=== PATIENT | male | born 1965 | race Caucasian/White ===

== ENCOUNTER 2024-06-24 14:33 | Outpatient (CLI) | payer BC, SELFPAY ==
--- NOTE | ~2024-06-24 | MR_ITS ---
EXAMINATION: MR hip RT wo con DATE: 06/24/2024 16:10 INDICATION: Unilateral primary osteoarthritis, right hip. TECHNIQUE: Magnetic resonance imaging (MRI) of the right hip was performed without intravenous contra st. COMPARISON: Pelvis and right hip radiograph 02/20/2024 FINDINGS: Bones/cartilage: Alignment is normal. There is severe degenerative disc disease at L5-S1. The hip joints demonstrate t iny osteophytes. There is deep partial-thickness cartilage loss in the hip joints bilaterally. Labrum: There is a tear of the right acetabular labrum. Fluid: There is no hip joint effusion. There is mild bilateral trochanter bursitis. Soft tissues: There is mild tendinopathy of the hamstring origins bilaterally. The iliopsoas tendons are normal. Th ere is mild tendinopathy of the gluteus minimus and gluteus medius tendons bilaterally. 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 IMPRESSION: 1. Moderate chondrosis of the hips. 2. Tear of the right acetabular labrum. Reviewed, dictated and finalized at location A.
== END 2024-06-24 14:34 | disposition home or self-care (01) ==
PROVIDERS: Visit Provider Physician Assistant Surgical
DX: M94.351 Chondrolysis, right hip (principal); M94.352 Chondrolysis, left hip; S73.191A Other sprain of right hip, initial encounter; M16.11 Unilateral primary osteoarthritis, right hip
CPT/HCPCS: 73721

== ENCOUNTER 2024-09-24 09:03 | Outpatient (CLI) | payer BC, SELFPAY ==
[2024-09-24 09:31] LABS: Anion Gap 7 mmol/L (4-12); Blood Urea Nitrogen 17 mg/dL (9-20); Calcium 9.2 mg/dL (8.4-10.2); Carbon Dioxide 25 mmol/L (22-30); Chloride 105 mmol/L (98-107); Estimated Glomerular Filt Rate > 60; Glucose 175 mg/dL (65-110); Potassium 4.5 mmol/L (3.4-5.0); Sodium 137 mmol/L (137-145)
== END 2024-09-24 09:04 | disposition home or self-care (01) ==
LOC: ANHLAB 09:05
PROVIDERS: Visit Provider Anesthesiology
DX: E11.9 Type 2 diabetes mellitus without complications (principal)
CPT/HCPCS: 36415; 80048

== ENCOUNTER 2024-09-30 00:21 | Day surgery (SDC) | payer BC, SELFPAY ==
[2024-09-22 08:52] VITALS: BMI 32.3
--- NOTE | 2024-09-22 09:03 | PC.NURSE ---
Report to the Outpatient Waiting Room, entrance under the green pavilion located off [facility], at time _1130_ on date _[id number]_. Planned Procedure Time: _130pm_.? Time changes happen often and if your time is changed the preop area will call you the afternoon before. - You and your visitor will be asked to self-screen and do not enter if you have any COVID symptoms. Please call surgeon if you need to reschedule. - A mask is optional within the hospital at this time. Patients may have clear liquids (water, carbonated beverages, clear teas, apple juice) until 3 hours prior to surgery with a maximum of 20 ounces. - No food from midnight until time of surgery and no smoking. This includes no chewing gum, candy or mints. Take only the following medications with a SIP of water on the morning of surgery: ____Carvidilol and Hydralazine____ DO NOT STOP ANY OF YOUR OTHER PRESCRIPTION MEDICATIONS PRIOR TO SURGERY EXCEPT THE FOLLOWING Medications to discontinue per physician __Vitamins and supplements___ Date to take last fcde___[id number]____ Patient is calling Dr Nava's office to verify instructions on Aspirin and Brilinta. Please no make-up, nail french, hairspray, perfume, deodorant, or body powder the day of surgery.? No jewelry (including any body piercings) or valuables the day of surgery, leave them at home.? Please take a shower or bath the night before, or the morning of, surgery with an antibacterial soap.? Wear comfortable, loose fitting clothing.? - Jewelry must be removed prior to entering the operating room.? Rings and piercings that are not removed may be cut off. - The hospital will not accept responsibility for valuables.? - Please leave all valuables, including medications, at home the day of surgery. If you are going home after surgery, a licensed otr truck driver must drive you home.? - NO public transportation without another adult if you receive anesthesia. - We recommend that an adult stay with you for 24 hours following discharge. - We also recommend that you do not drive, make important decision, drink alcoholic beverages, or take any drugs that were not prescribed by your health care provider for at least 24 hours after your discharge time. Follow any additional instructions given to you from your surgeon. Telephone instructions given to __David__and asked if any additional questions and then verbalized understanding. Patient advised to call surgeon office or pre surgery nurse liaison [phone] if any additional questions.
[2024-09-30] VITALS (8 sets, daily range): BP systolic 103–143; BP diastolic 73–89; PULSE 74–89; RESP 12–18; TEMP 36.2–36.6; O2SAT 98–100
--- NOTE | 2024-09-30 10:54 | WPDHPUPDATE1 ---
History and Physical Update Update Date/Time: 09/30/24 10:54 PROCEDURE CHANGE TO OPEN TROCHANTERIC BURSECTOMY AND ILIOTIBIAL BAND RELEASE, RIGHT HIP. History and Physical has been reviewed, including an updated exam of the patient. There are NO changes in the patient's condition. Risks, benefits, and alternatives have been discussed and questions answered. Patient agrees to proceed with procedure.
[2024-09-30] MEDS: ACETAMINOPHEN 500 MG TABLET 1000 MG PO (11:45)
[2024-09-30] MEDS: LACTATED RINGERS 1,000 ML 30 ML IV CONT ×2 (11:50→15:18)
[2024-09-30] MEDS: KETOROLAC 15 MG/ML VIAL (*BKC) IV PUSH (11:50)
[2024-09-30 12:08] LABS: Glucose Point of Care 128 mg/dl (65-105)
--- NOTE | 2024-09-30 13:05 | WPDANESEPPF ---
Anes - Initial Pre Proc Eval Procedure: Operation Date: 09/30/24 13:30 Proposed Procedures p Right Iliotibial Band Release with Bursectomy - Paul Nava MD Date/Time: 09/30/24 13:05 Surgeon: Paul Nava MD Pre Op Diagnosis: right hip trochanteric bursitis Patient Data Age: 59 Gender: M Height: 1.78 m Weight: 105.1 kg Last Vital Signs Temp 36.2 C L 09/30/24 11:41 Pulse 81 09/30/24 11:41 Resp 18 09/30/24 11:41 BP 127/86 09/30/24 11:41 Pulse Ox 99 09/30/24 11:41 O2 Del Method Room Air 09/30/24 11:41 Allergies Allergy/AdvReac Type Severity Reaction Status Date / Time adhesive tape Allergy Mild Rash Verified 09/30/24 11:44 lisinopril Allergy Unknown Unknown Verified 09/30/24 11:44 Penicillins Allergy Unknown Unknown Verified 09/30/24 11:44 Home Medications ?Medication ?Instructions ?Recorded ?Confirmed ?Type aspirin 81 mg tablet,delayed 81 mg PO DAILY 02/14/24 09/22/24 History release (Adult Low Dose Aspirin) blood-glucose meter (Contour Next 02/14/24 09/17/24 History EZ Meter) carvedilol 25 mg tablet 25 mg PO Q12H 02/14/24 09/22/24 History cetirizine 10 mg tablet 10 mg PO HS 02/14/24 09/22/24 History cyclobenzaprine 10 mg tablet 10 mg PO TID 02/14/24 09/22/24 History ezetimibe 10 mg tablet 10 mg PO DAILY 02/14/24 09/22/24 History losartan 100 mg tablet 100 mg PO DAILY 02/14/24 09/22/24 History magnesium oxide 400 mg PO DAILY 02/14/24 09/22/24 History metformin 500 mg tablet 500 mg PO DAILY 02/14/24 09/22/24 History multivitamin 1 tablet PO DAILY 02/14/24 09/22/24 History nitroglycerin 0.4 mg sublingual 0.4 mg sublingual Q5M PRN chest 02/14/24 09/22/24 History tablet pain omeprazole magnesium 20 mg 20 mg PO DAILY 02/14/24 09/22/24 History capsule,delayed release potassium gluconate 595 mg (99 mg) 595 mg PO DAILY 02/14/24 09/22/24 History tablet rosuvastatin 40 mg tablet 40 mg PO DAILY 02/14/24 09/22/24 History ticagrelor 90 mg tablet 90 mg PO Q12H 02/14/24 09/22/24 History coenzyme Q10 100 mg capsule (Co 100 mg PO DAILY 09/22/24 09/22/24 History Q-10) hydralazine 25 mg tablet 25 mg PO Q12H 09/22/24 09/22/24 History krill 500 mg-omega-3 150 mg-dha 45 1 cap PO DAILY 09/22/24 09/22/24 History mg-epa 75 pw-gvctccb-duvos capsule (krill oil) tirzepatide 7.5 mg/0.5 mL 7.5 mg subcut WEEKLY 09/22/24 09/22/24 History subcutaneous pen injector (Mounjaro) turmeric 400 mg capsule 250 mg PO DAILY 09/22/24 09/22/24 History hydrocodone 5 mg-acetaminophen 325 1 - 2 tablet PO Q4-6H PRN pain 7 09/30/24 Rx mg tablet days #30 tabs Laboratory Tests 09/30/24 12:03 POC Capillary Glucose 128 H mg/dl (65-105) Patient hx anesthesia problems: none Family hx anesthesia problems: none Results Review: All pre-operative results and documents have been reviewed as part of the pre-operative evaluation. [facility] Past Medical History Medical History History of testicular cancer History of stress test History of heart attack Diabetes Hyperlipidemia Surgical History Surgical History History of shoulder surgery History of ankle surgery History of hernia surgery History of knee surgery History of back surgery H/O heart artery stent Family History Family History Other Heart disease Social History Social History Smoking status: Never smoker Alcohol intake: current Drinks per week: 1 Substance use: never Substance use type: does not use Do You Feel Safe in your Home?: Yes Lack of Transportation: No Lack of Food: Never True Current Housing: I Have Housing Concerned About Future Housing: No Difficulty Paying Gas/Electric Bills: No Difficulty Paying for Meds: No Currently Unemployed: No Education: Associate Degree Difficulty w/ Childcare or Family Care: No Living arrangements: with family Spiritual care concerns: No Anes - Eval Final PreProcedure Day of Procedure 09/30/24 13:05 Patient weight: obese Heart: regular rate and rhythm Lungs: clear to auscultation Airway: Mallampati scale class II Neurological: alert and oriented Last oral intake: >/= 8 hours ASA classification: III Emergent: no Anesthetic plan: proceed Anesthesia type and monitoring: general LMA and standard monitoring Results Review: All pre-operative results and documents have been reviewed as part of the pre-operative evaluation. Informed Consent: The patient's anesthetic plan and its attendant risks and benefits were discussed with the patient/family/POA. Questions were solicited and answers provided to the satisfaction of the patient/family/POA.
[2024-09-30] MEDS: ceFAZolin 2 GM/D5W 50 ML 2 GM/50 ML BAG IVPB (14:09)
[2024-09-30] MEDS: BUPIVACAINE/EPINEPHRINE 0.5% 50 ML VIAL 20 ML INFILTRATE (14:42)
[2024-09-30 15:25] LABS: Glucose Point of Care 111 mg/dl (65-105)
--- NOTE | 2024-09-30 15:54 | W.PM.PROC2 ---
Procedure Note - Detailed Date of Procedure 09/30/24 Pre-op Diagnosis Right hip trochanteric bursitis Post-op Diagnosis Same Procedure Performed Open trochanteric bursectomy with iliotibial band release right hip. Surgeon Paul Nava MD Plant Electrical Engineer Gail Julian PA-C Anesthesia General Indications Recalcitrant trochanteric bursa pain. MRI confirmed the absence of abductor muscle and intra-articular hip pathology. Diagnostic injection in the hip joint was also negative. Findings Tiny spur on the prominent trochanteric bone distal lateral was removed. Thickened bursa appeared pathologic. IT band released at the point of greatest contact pressure on the greater trochanter. Description of Procedure Preoperative antibiotics were given. The patient was brought to the operating room. A general anesthetic was administered. He was carefully placed in the lateral position. The hip was prepped and draped in the usual sterile fashion. A longitudinal incision was created approximately 4 cm at the high point of the greater tuberosity midway from the anterior and posterior aspects. Dissection was carried down through subcutaneous tissue to the deep fascia. A 2-3 cm longitudinal split was created in the fascia over the high point of the trochanter. This longitudinal split was extended 5-10 mm anteriorly at the area of greatest tension on the fascia. The leg was abducted and the bursa was removed using Metzenbaum scissors. The abductor musculature was identified and protected. There were no tears noted. At the point of most lateral prominence, there was a tiny spur. This coincided with the radiographic image at the distal aspect of the trochanter. A short split was created longitudinally in the vastus lateralis fascia, exposing the prominent bone. The rongeur was used to smooth this area and removed the prominence. The fascia was closed with an inverted #1 Vicryl suture. The hip was internally and externally rotated to assure that there was no further contact or pressure points. The wound was irrigated. The overlying subcutaneous tissue was closed in multiple layers over the fascial defect. The subcutaneous tissue was closed in layers with interrupted 2-0 Vicryl, 3-0 Monocryl, followed by running 4-0 Monocryl suture. Steri-Strips were applied to the skin. Sterile dressing was applied. The patient was extubated and brought to the recovery room in stable condition. 0.5% Marcaine with epinephrine was used in the bursa and the subcutaneous tissues for perioperative pain control. Estimated Blood Loss 5 Drains No Packing No Pathology None sent Complications No immediate complications Condition Stable Disposition PACU [facility] Billing Surgery - Charge Forward: Surgery Billing
--- OUTSIDE RECORDS SUMMARY | 2024-10-02 15:10 | XMS_ITS ---
Author Organization [facility] Address [address] [place] [address] Care Team Providers Care Tin Cutter Name Role Phone Wesly Yang DO Primary Care Provider Active Problems Problem Noted Date Diagnosed Date Coronary artery disease invo lving salamatof coronary artery of salamatof heart with angina pectoris 03/26/2024 Chest pain 03/24/2024 Hepatic steatosis 11/01/2023 Testicular cancer 06/13/2023 Right hip pain 11/23/2021 Assessment & Plan (11/23/2021 3:01 PM CDT): Mr. Howe has right-sided hip pain of unclear etiology. It extends down the back of his leg. He has been seen and evaluated by Dr. Keene in the past. He did well after a decompression at L4-S1 on the right in 2008. I do not see definite compressive pathology on the current or previous MRI from 2020. We will get AP and flexion-extension films to look for any instability of the spine. He has a lumbosacral transitional vertebrae. We will refer him to Dr. Stewart for evaluation of his right hip. He does not seem to have inherent joint disease, piriformis syndrome for definite radiculopathy on my examination. He may have a component of bursitis. We will await Dr. Stewart's evaluation. I plan to see him back in 4 months for re-evaluation with no new films at that time. If the orthopedic evaluation is negative, we discussed that we could explore and decompress the prior laminotomy site, but there were no guarantees that this would change his symptoms. Back pain 08/21/2019 Overview (08/21/2019): Added automatically from request for surgery [id number] Diarrhea 06/24/2019 Unstable angina (CMS/HCC) 12/03/2018 Overview (12/03/2018): Added automatically from request for surgery [id number] Skin neoplasm 07/01/2018 Overview (08/30/2023): Note: -on low abdomen area-will follow RBBB 05/02/2018 Encounter for screening for malignant neoplasm o f colon 10/04/2017 Assessment & Plan (10/04/2017 3:43 PM BAIL BONDING AGENT): He has never had colonoscopy. He was unable to have colonoscopy at age 51 due to a cardiac condition requiring the use of Brilinta. His consultant education did not want him to be off of Brilinta for at least a year and he has been on it for 15 months now. I will schedule colonoscopy for screening with Dr. Espino. Heartburn 10/04/2017 Assessment & Plan (10/04/2017 3:46 PM BAIL BONDING AGENT): He is not having any heartburn on the pantoprazole. He has been on it for six months, so I will step him down to ranitidine 150 mg 1 tab po twice a day. If this does not control symptoms, I will order EGD for evaluation. I discussed GERD diet with him. Coronary artery disease invo lving salamatof coronary artery of salamatof heart without angina pectoris 04/16/2017 Assessment & Plan (11/08/2023 3:21 PM BAIL BONDING AGENT): Stable, without angina. I made no change in his excellent medical regimen today. I asked him to follow up with me annually, or sooner if needed. I again advised him to continue to diet and exercise regularly. Assessment & Plan (11/06/2022 11:11 AM BAIL BONDING AGENT): Stable, without angina. I made no change in his excellent medical regimen today, except to increase Norvasc to 10 mg daily for better blood pressure control. I asked him to follow up with me annually, or sooner if needed. I again advised him to continue to diet and exercise regularly. Assessment & Plan (07/25/2022 3:33 PM BAIL BONDING AGENT): Stable, without angina. I made no change in his excellent medical regimen today. I asked him to follow up with me annually, or sooner if needed. I again advised him to diet and exercise regularly. Assessment & Plan (07/19/2021 3:47 PM BAIL BONDING AGENT): Stable, without angina. I made no change in his excellent medical regimen today. I asked him to follow up with me annually, or sooner if needed. I again advised him to diet and exercise regularly. Assessment & Plan (07/13/2020 3:12 PM BAIL BONDING AGENT): Stable, without angina. I made no change in his excellent medical regimen today. I asked him to follow up with me annually, or sooner if needed. I again advised him to diet and exercise regularly. Assessment & Plan (01/06/2020 12:20 PM CDT): Stable, without angina. I made no change in his excellent medical regimen today. I asked him to follow up with me in 6 months, or sooner if needed. I again advised him to continue to diet and exercise regularly. Assessment & Plan (01/06/2019 2:55 PM CDT): Stable, without angina. I made no change in his excellent medical regimen today. I asked him to follow up with me annually, or sooner if needed. I again advised him to diet and exercise regularly. Assessment & Plan (07/08/2018 3:56 PM CDT): Stable, without angina status post recent stenting of the mid LAD with preserved left ventricular function. I made no change in his excellent medical regimen today. I asked him to follow up with me in 6 months, or sooner if needed. I again advised him to diet and exercise regularly. Assessment & Plan (05/02/2018 1:06 PM CDT): Stable, but he is having lots of recurrent atypical chest discomfort, but some features are concerning for possible angina. I recommended an echocardiogram to re-evaluate left ventricular and valvular function, and a stress echo to rule out any significant ischemia. Further recommendations will await these results. I made no change in his excellent medical regimen today. Tentatively, I asked him to follow up with me annually, or sooner if needed, pending the results of the above studies. Assessment & Plan (04/16/2018 3:07 PM CDT): Stable, without angina. I made no change in his excellent medical regimen today. I asked him to follow up with me annually, or sooner if needed. I again advised him to diet and exercise regularly. Assessment & Plan (04/17/2017 2:04 PM CDT): Stable, without angina and with a reassuring catheterization recently. I made no change in his excellent medical regimen today. I asked him to follow up with me annually, or sooner if needed. Essential hypertension, benign 04/16/2017 Assessment & Plan (11/08/2023 3:21 PM BAIL BONDING AGENT): Well controlled. Continue same therapy. Continue diet and exercise Assessment & Plan (11/06/2022 11:11 AM BAIL BONDING AGENT): Blood pressure is running high. As above, I increased Norvasc to 10 mg daily. Otherwise, continue same therapy. Continue diet and exercise. I asked him to continue to monitor his blood pressure carefully at home, and to report if it remains elevated. Assessment & Plan (07/25/2022 3:33 PM BAIL BONDING AGENT): Blood pressure is well controlled. Continue same therapy. Continue diet and exercise. Assessment & Plan (07/19/2021 3:48 PM BAIL BONDING AGENT): Blood pressure is well controlled. Continue same therapy. Continue diet and exercise. Assessment & Plan (07/13/2020 3:13 PM BAIL BONDING AGENT): Blood pressure is borderline today, but is well controlled in general. Continue same therapy. Continue diet and exercise. Assessment & Plan (01/06/2020 12:20 PM CDT): Blood pressure is well controlled. Continue same therapy. Continue diet and exercise. Assessment & Plan (01/06/2019 2:56 PM CDT): Blood pressure is well controlled. Continue same therapy. Continue diet and exercise. Assessment & Plan (07/08/2018 3:56 PM CDT): Blood pressure is well controlled. Continue same therapy. Continue diet and exercise. Assessment & Plan (05/02/2018 1:06 PM CDT): Blood pressure is well controlled. Continue same therapy. Continue diet and exercise. Assessment & Plan (04/16/2018 3:07 PM CDT): Blood pressure is very well controlled. Continue same therapy. Continue diet and exercise. Assessment & Plan (04/17/2017 2:05 PM CDT): Blood pressure is borderline today, but is well controlled in general. Continue same therapy. I asked him to monitor his blood pressure at home, and to report if elevated. Hypercholesteremia 04/16/2017 Assessment & Plan (11/08/2023 3:21 PM BAIL BONDING AGENT): Well controlled. Continue high-intensity statin therapy plus Zetia. Assessment & Plan (11/06/2022 11:12 AM BAIL BONDING AGENT): Lipids are well controlled. Continue high-intensity statin therapy plus Zetia. Assessment & Plan (07/25/2022 3:34 PM BAIL BONDING AGENT): Lipids are well controlled. Continue high-intensity statin therapy. Assessment & Plan (07/19/2021 3:48 PM BAIL BONDING AGENT): Lipids are well controlled. Continue high-intensity statin therapy plus Zetia. Assessment & Plan (07/13/2020 3:13 PM BAIL BONDING AGENT): Lipids are well controlled. Continue high-intensity statin therapy. Assessment & Plan (01/06/2020 12:20 PM CDT): Lipids are well controlled. Continue high-intensity statin therapy. Assessment & Plan (01/06/2019 2:56 PM CDT): Lipids are well controlled. Continue high-intensity statin therapy. Assessment & Plan (07/08/2018 3:57 PM CDT): Lipids are well controlled. Continue high-intensity statin therapy. Assessment & Plan (05/02/2018 1:07 PM CDT): Lipids are well controlled. Continue high-intensity statin therapy. Assessment & Plan (04/16/2018 3:08 PM CDT): Lipids are very well controlled. Continue high-intensity statin therapy. Assessment & Plan (04/17/2017 2:05 PM CDT): Lipids are well controlled. Continue statin therapy. Knee pain 01/22/2017 Incisional hernia 09/21/2015 Overview (12/14/2016): Incisional hernia Current Oncology Plans No current plan information found. Past Plans No past plan information found. Radiation Treatments * No radiation treatments are documented for this patient in [facility]. Treatments may have been administered in another system. Lifetime Dose Tracking * Chemical Lifetime Dose Automatic Entry Manual Entr y Air kerma at the reference point (Ka,r) 1,937.96 mGy 0 mGy 1,937.96 mGy Resolved Problems Problem Noted Date Diagnosed Date Resolved Date Recurrent angina status post coronary stent placement 05/21/2018 07/12/2020 Overview (05/21/2018): Added automatically from request for surgery [id number]
--- OUTSIDE RECORDS SUMMARY | 2024-10-02 15:10 | XMS_ITS | Encounter Summary ---
Author Organization [facility] Address [address] [address] Care Team Providers Care Agricultural Science Professor Name Role Phone Wesly Yang DO Primary Care Provider [phone] Wesly Yang DO Primary Care Provider [phone] Wesly Yang DO Primary Care Provider [phone] Wesly Yang DO Primary Care Provider [phone] Encounter Details Date Type Department Care Team (Latest Contact Info) Description 02/20/2013 Orders Only [facility] Cardiology ProviderMargareth MD [address] [place] [id number] Social History Tobacco Use Types Packs/Day Years Used Date Smoking Tobacco: Never Assessed Sex and Gender Information Value Date Recorded Sex Assigned at Not on file Legal Sex Male 5:19 PM MALT SPECIFICATIONS CONTROL ASSISTANT Gender Identity Not on file Sexual Orientation Not on file documented as of this encounter Plan of Treatment Not on file documented as of this encounter Procedures Procedure Name Priority Date/Time Associated Diagnosis Comments CARDIOLOGY REPORT 02/20/2013 documented in this encounter Results * CARDIOLOGY REPORT (02/20/2013) Anatomical Region Laterality Modality Other Narrative 02/20/2013 Ordered by an unspecified provider. Historical Provider CV CARDIAC JIL SUAZO Final Result documented in this encounter Visit Diagnoses Not on filedocumented in this encounter Additional Health Concerns Infection Onset Date Last Indicated Resolved Time COVID: Suspected 10/22/2022 10/22/2022 10/22/2022 8:38 AM MALT SPECIFICATIONS CONTROL ASSISTANT documented as of this encounter Care Teams Agricultural Science Professor Relationship Specialty Start Date End Date Wesly Yang DO PCP - General 10/16/16 12/07/16 Wesly Yang DO PCP - General 11/02/15 10/15/16 Wesly Yang DO PCP - General 09/21/15 11/01/15 Wesly Yang DO [address] [place] [id number] PCP - General Internal Medicine 12/08/16 documented as of this encounter
--- OUTSIDE RECORDS SUMMARY | 2024-10-02 15:10 | XMS_ITS | Continuity of Care Document ---
Author Organization [facility] Address [address] [place] [address] Phone Care Team Providers Care Hotbed Operator Name Role Phone Rui LANDEROSCHRIS LOPEZ Francesco Unavailable Unavailab le Allergies, Adverse Reactions, Alerts Substance Reaction Status Criticality Penicillins Rash Active No Information Medications Medication Instructions Dosage Effective Dates (start - stop) Status Comments METOPROLOL TARTRATE (unknown strength) Not Available - Active ASPIRIN EC (unknown strength) Not Available - Active BRILINTA (unknown strength) Not Available - Active EZETIMIBE (unknown strength) Not Available - Active LOSARTAN POTASSIUM (unknown strength) Not Available - Active MULTIVITAMINS (unknown strength) Not Available - Active ROSUVASTATIN CALCIUM (unknown strength) Not Available - Active Procedures Procedure Date Asp/inject major joint or bursa w/o US g uidance Kenalog 40mg/mL X-ray Exam Hip Unilat With Pelvis When P erf 2-3 View Office/outpatient visit,new, mod 2021 Asp/inject major joint or bursa w/o US g uidance Kenalog 40mg/mL Advance Directives Directive Yes / No Effective Date File Name No Information Encounters Encounter Description Practice Location Reason(s) For Visit Diagnoses Date Provider Providers Copied on Encounter [facility], [address], [place], [place], [id number], [place] tel:[phone] [facility] right hip (chief complaint) Pain in right hipTrochanteric bursitis, right hip 2 Rui Maya. [address], [address], [place], [place], [id number] , [place]. tel: [phone] Office/outpat ient visit,[facility], [address], [place], [place], [id number], [phone] [facility] right hip (chief complaint) Pain in right hipTrochanteric bursitis, right hip 2 Pat carr. [address], [address], [place], [place], [id number] , [place]. tel: [phone] Family History Family Member Type Diagnosis Age At Onset Father Problem (finding) Heart Disease Payers Payer name Insurance type Covered democrat ID Rishi hailejimbo(s) [facility] [id number] Social History Type Description Quantity Date Captured Comments Alcohol Use Details Unknown Caffeine Use Details Unknown Tobacco Use Status No Information Smoking Status Never smoker Non-Smoking Tobacco Use Details : No Details Available : No Details Available Sex Male Vital Signs Date / Time: Height Weight BMI Pulse Rate Blood Pressure Temperature Respiratory Rate Body Surface Area Head Circumference Head Circ. Percentile Wt./Darin. Percentile BMI percentile Pulse Ox Inhaled Ox 8:13 AM 70.00 in 110.677 kg (244.00 lbs) 35.0 1 kg/m gladyser (2) Chief Complaint And Reason For Visit From encounter dated '05/05/2022 08:10'. right hip (chief complaint). Description: Anaid is a pleasant 57-year-old male who presents to the office today for cortisone injection into the right greater trochanteric region for treatment of pain related to trochanteric bursitis. Patient last had a cortisone injection on 12/21/2021 and indicates that it worked very well until approximately 1 week ago. Denies injury, trauma, or fall since lastoffice visit. Denies fever, chills, generalized feelings of illness or malaise. Pain is moderate tosevere and intermittent, predominantly located at the greater trochanteric region, and worsened at night, with sitting on his side and intermittently throughout the day. Pain is managed with the use of either Advil or aspirin, heat, massage. Patient does have a past medical history significant for back pain and sciatic nerve pain and feels that this is complicating his trochanteric bursitis. He is ambulating without assistive device at today's office visit. Reason For Referral Reason For Referral No Information Plan Of Treatment Date Type Action Status Referral Ordered: X-ray Exam Hip Unilat With Pelvis When Perf 2-3 View RT hip ordered Patient Education Trochanteric Bursitis: Exercises completed History Of Present Illness Encounter Date Complaint History Of Prese nt Illness right hip Anaid is a ple ant 57-year-old male who presents to the office today for cortisone injection into the right greater trochanteric region for treatment of pain related to trochanteric bursitis. Patient last had a cortisone injection on 12/21/2021 and indicates that it worked very well until approximately 1 week ago. Denies injury, trauma, or fall since last office visit. Denies fever, chills, generalized feelings of illness or malaise. Pain is moderate to severe and intermittent, predominantly located at the greater trochanteric region, and worsened at night, with sitting on his side and intermittently throughout the day. Pain is managed with the use of either Advil or aspirin, heat, massage. Patient does have a past medical history significant for back pain and sciatic nerve pain and feels that this is complicating his trochanteric bursitis. He is ambulating without assistive device at today's office visit. right hip Anaid is a 56 ye ar-old male who presents to the office for evaluation of right hip pain. He presents at the referral of Dr. Doug Lindsay. He has a history of sciatic pain in his right leg. He is 5 foot 10 and 244 pounds. He denies any trauma. Pain is an 8 out of 10. He has sharp and stabbing pains. Pain is located on the lateral side of the right hip he has limping pain with lying on his side and numbness in his right leg pain is worse with laying on his right side and he has spasming pain is better with injections heat and prescription medication. He has previously had lumbar spine surgery. He has used anti-inflammatory medication chiropractic treatment injections MRI narcotic medication and plain x-rays. He is a non-smoker. He has had multiple lumbar spine surgeries and shoulder surgeries. As well as knee surgery. He does not use a cane or walker. Functional Status Date Functional Assessmen t No Information Instructions Date Instruction Additional Infor paula Verbal consent for t he procedure was obtained. The patient was placed in the left lateral decubitus position. The right greater trochanter was palpated. The skin was prepped with alcohol and chlorhexidine, anesthetized with Ethyl Chloride spray and a 22 gauge needle was used to introduce 3mL's of 1% Lidocaine plain into the subcutaneous tissues. The area was then re-prepped with alcohol and chlorhexidine. An 18 gauge spinal needle was used to locate the tip of the greater trochanter, 80mg of Kenalog and 3mL of 0.5% bupivacaine plain was injected into the trochanteric bursal space. Pressure was held on the injection site for approximately 60 seconds after removal of needle. The area was then cleaned and a sterile bandage was placed. The procedure was completed without complication and was well tolerated by the patient. Patient was educated on post injection care instructions and discharged in stable condition. Dictation completed with [employer] software, grammatical variances in spelling errors may inadvertently occur. Related to Trochanteric bursitis, right hip With the patient alejandro brigette into the left lateral decubitus position. The right greater trochanter was palpated. The skin was cleansed with alcohol. The skin was then anesthetized with ethyl chloride and 3 cc of lidocaine were introduced and the subcutaneous tissues. We then reprepped the skin with Betadine and alcohol. A spinal needle was used to palpate the tip of the greater trochanter, 80 mg of Kenalog and 6 cc of lidocaine were injected into the trochanteric bursal space. A sterile dressing was applied. The patient tolerated this procedure well. Related to Trochanteric bursitis, right hip Assessments Type Assessment Date assessment Pain in right hip assessment Trochanteric bursitis, right hip impression Trochanteric bursiti s right hip. Continuation of conservative treatments, risks and benefits of cortisone injection, frequency of injection schedule, medication management, and exercise program were discussed with the patient. He demonstrates appropriate understanding and wishes to proceed with cortisone injection into the right greater trochanteric region. A list of exercises appropriate for trochanteric bursitis treatment were provided to the patient. He demonstrates appropriate understanding and will follow up with the office as needed Patient Care Teams Name Effective Dates (start - stop) Status Members No Information
--- OUTSIDE RECORDS SUMMARY | 2024-10-02 15:10 | XMS_ITS | Referral Summary ---
Author Organization [facility] Address [address] [place] [address] Care Team Providers Care Cake Puncher Name Role Phone Wesly Yang DO Primary Care Provider [phone] Encounters Date Type Department Care Team Description 09/24/2024 Telephone [facility] Cardiology [address] [place] [address] Abelardo Osman MD Medical Records Request from Last 3 Months Allergies Active Allergy Reactions Criticality Noted Date Comments Latex Blisters,Rash High Lisinopril Hives,Urticaria,Rash Medium 04/09/2017 Penicillins Rash Medium 11/10/2011 Medications aspirin 81 mg tablet Take 1 tablet (81 mg total) by mouth daily Active multivit-min/foli c/vit K/lycop (ONE-A-DAY MEN'S MULTIVITAMIN ORAL) Take 1 tablet by mouth daily Active cetirizine (ZyrTEC) 10 mg tablet Take 1 tablet (10 mg total) by mouth daily Active nitroglycerin (NITROSTAT) 0.[address] 1 tablet (0.4 mg total) under the tongue every 5 (five) minutes as needed for chest pain Active omeprazole (PriLOSEC) 20 mg capsule Take 1 capsule (20 mg total) by mouth daily Active potassium 99 mg tablet Take 1 tablet (99 mg total) by mouth daily Active Contour Next Test Strips strip USE TO TEST BLOOD SUGARS THREE TIMES DAILY 3 Active Contour Next EZ Meter misc USE TO TEST BLOOD SUGARS THREE TIMES DAILY 3 Active lancets misc 3 Active magnesium oxide 400 mg magnesium capsule Take 400 mg by mouth Active hydrALAZINE (APRESOLINE) 25 mg tabletIndications :hypertension Take 1 tablet (25 mg total) by mouth 2 (two) times a day Active losartan (COZAAR) 100 mg tablet Take 1 tablet (100 mg total) by mouth daily Active milk thistle 150 mg capsule Take by mouth Activ e turmeric root extract 500 mg capsule Take by mouth Active awcvr-zd-8-dha-ep s-mudwyhu-kko 1,000-230-60 mg capsule Take by mouth Active Mounjaro 2.5 mg/0.5 mL pen injector INJECT 2.5 MG UNDER THE SKIN EVERY WEEK ROTATING INJECTION SITES 4 Active valACYclovir (VALTREX) 1 gram tablet TAKE 1 TABLET BY MOUTH EVERY 8 HOURS FOR 7 DAYS 4 Active metFORMIN XR (GLUCOPHAGE XR) 500 mg 24 hr tablet Take 1 tablet (500 mg total) by mouth daily 4 Active ezetimibe (ZETIA) 10 mg tablet TAKE 1 TABLET BY MOUTH EVERY DAY 90 tablet 3 4 Active carvediloL (COREG) 25 mg tablet TAKE 1 TABLET(25 MG) BY MOUTH TWICE DAILY WITH MEALS 180 tablet 1 4 Active rosuvastatin (CRESTOR) 40 mg tablet TAKE 1 TABLET BY MOUTH EVERY DAY 90 tablet 1 4 Active ticagrelor (Brilinta) 90 mg tablet TAKE 1 TABLET BY MOUTH TWICE DAILY 60 tablet 3 4 Active Active Problems Problem Noted Date Diagnosed Date Coronary artery disease invo lving [place] coronary artery of [place] heart with angina pectoris 03/26/2024 Chest pain 03/24/2024 Hepatic steatosis 11/01/2023 Testicular cancer 06/13/2023 Right hip pain 11/23/2021 Assessment & Plan (11/23/2021 3:01 PM CDT): Mr. Peña has right-sided hip pain of unclear etiology. It extends down the back of his leg. He has been seen and evaluated by Dr. Keene in the past. He did well after a decompression at L4-S1 on the right in 2008. I do not see definite compressive pathology on the current or previous MRI from 2019. We will get AP and flexion-extension films [...] (08/21/2019): Added automatically from request for surgery [id number] Diarrhea 06/24/2019 Unstable angina (CMS/HCC) 12/03/2018 Overview (12/03/2018): Added automatically from request for surgery [id number] Skin neoplasm 07/01/2018 Overview (08/30/2023): Note: -on low abdomen area-will follow RBBB 05/02/2018 Encounter for screening for malignant neoplasm o f colon 10/04/2017 Assessment & Plan (10/04/2017 3:43 PM COUNTY RECORDS MANAGEMENT OFFICER): He has never had colonoscopy. He was unable to have colonoscopy at age 51 due to a cardiac condition requiring the use of Brilinta. His nut grinder did not want him to be off of Brilinta for at least a year and he has been on it for 15 months now. I will schedule colonoscopy for screening with Dr. Espino. Heartburn 10/04/2017 Assessment & Plan (10/04/2017 3:46 PM COUNTY RECORDS MANAGEMENT OFFICER): He is not having any heartburn on the pantoprazole. He has been on it for six months, so I will step him down to ranitidine 150 mg 1 tab po twice a day. If this does not control symptoms, I will order EGD for evaluation. I discussed GERD diet with him. Coronary artery disease invo lving [place] coronary artery of [place] heart without angina pectoris 04/16/2017 Assessment & Plan (11/08/2023 3:21 PM COUNTY RECORDS MANAGEMENT OFFICER): Stable, without angina. I made no change in his excellent medical regimen today. I asked him to follow up with me annually, or sooner if needed. I again advised him to continue to diet and exercise regularly. Assessment & Plan (11/06/2022 11:11 AM COUNTY RECORDS MANAGEMENT OFFICER): Stable, without angina. I made no change in his excellent medical regimen today, except to increase Norvasc to 10 mg daily for better blood pressure control. I asked him to follow up with me annually, or sooner if needed. I again advised him to continue to diet and exercise regularly. Assessment & Plan (07/25/2022 3:33 PM COUNTY RECORDS MANAGEMENT OFFICER): Stable, without angina. I made no change in his excellent medical regimen today. I asked him to follow up with me annually, or sooner if needed. I again advised him to diet and exercise regularly. Assessment & Plan (07/19/2021 3:47 PM COUNTY RECORDS MANAGEMENT OFFICER): Stable, without angina. I made no change in his excellent medical regimen today. I asked him to follow up with me annually, or sooner if needed. I again advised him to diet and exercise regularly. Assessment & Plan (07/13/2020 3:12 PM COUNTY RECORDS MANAGEMENT OFFICER): Stable, without angina. I made no change [...] 04/16/2017 Assessment & Plan (11/08/2023 3:21 PM COUNTY RECORDS MANAGEMENT OFFICER): Well controlled. Continue same therapy. Continue diet and exercise Assessment & Plan (11/06/2022 11:11 AM COUNTY RECORDS MANAGEMENT OFFICER): Blood pressure is running high. As above, I increased Norvasc to 10 mg daily. Otherwise, continue same therapy. Continue diet and exercise. I asked him to continue to monitor his blood pressure carefully at home, and to report if it remains elevated. Assessment & Plan (07/25/2022 3:33 PM COUNTY RECORDS MANAGEMENT OFFICER): Blood pressure is well controlled. Continue same therapy. Continue diet and exercise. Assessment & Plan (07/19/2021 3:48 PM COUNTY RECORDS MANAGEMENT OFFICER): Blood pressure is well controlled. Continue same therapy. Continue diet and exercise. Assessment & Plan (07/13/2020 3:13 PM COUNTY RECORDS MANAGEMENT OFFICER): Blood pressure is borderline today, but is [...] 04/16/2017 Assessment & Plan (11/08/2023 3:21 PM COUNTY RECORDS MANAGEMENT OFFICER): Well controlled. Continue high-intensity statin therapy plus Zetia. Assessment & Plan (11/06/2022 11:12 AM COUNTY RECORDS MANAGEMENT OFFICER): Lipids are well controlled. Continue high-intensity statin therapy plus Zetia. Assessment & Plan (07/25/2022 3:34 PM COUNTY RECORDS MANAGEMENT OFFICER): Lipids are well controlled. Continue high-intensity statin therapy. Assessment & Plan (07/19/2021 3:48 PM COUNTY RECORDS MANAGEMENT OFFICER): Lipids are well controlled. Continue high-intensity statin therapy plus Zetia. Assessment & Plan (07/13/2020 3:13 PM COUNTY RECORDS MANAGEMENT OFFICER): Lipids are well controlled. Continue high-intensity statin [...] Incisional hernia 09/21/2015 Overview (12/14/2016): Incisional hernia Resolved Problems Problem Noted Date Diagnosed Date Resolved Date Recurrent angina status post coronary stent placement 05/21/2018 07/12/2020 Overview (05/21/2018): Added automatically from request for surgery [id number] Immunizations Name Administration Dates Next Due Flucelvax Influenza Quad MDI 08/08/2016 Influenza, Quadrivalent, Candace l Culture-based MDCK, Preservative Free, Antibiotic Free, Intramuscular 07/24/2019,10/15/2017 Influenza, Quadrivalent, Rec ombinant, Egg Free, Preservative Free, Intramuscular 07/04/2022,09/06/2021 Influenza, Quadrivalent, Spl it, Preservative Free, Intramuscular 07/20/2020,07/24/2019,05/27/2018,10/16,10/11/2015 Influenza, Trivalent, IM (MDV) 08/13/2013,2012 MMR 12/28/1993 Pneumococcal Polysaccharide PPV23 08/08/2016 Tdap 02/08/2019 ZOSTER Recombinant 07/24/2019 Social History Tobacco Use Types Packs/Day Years Used Date Smoking Tobacco: Never Smokeless Tobacco: Never Tobacco Cessation:Counseling Given: Not Answered Alcohol Use Standard Drinks/Week Comments Yes 0 (1 standard drink = 0.6 oz pur e alcohol) occasion [facility] Utilities Answer Date Recorded In the past 12 months has Active Circle, gas, oil, or water company threatened to shut off services in your home? No 03/25/2024 Social Connection and Isolat ion Panel [NHANES] Answer Date Recorded In a typical week, how many times do you talk on the phone with family, friends, or neighbors? More than three times a week 03/25/2024 How often do you get togethe r with friends or relatives? More than three times a week 03/25/2024 How often do you attend chur ch or spiritism services? 1 to 4 times per year 03/25/2024 Do you belong to any clubs o r organizations such as congregational groups, unions, fraternal or athletic groups, or school groups? Yes 03/25/2024 How often do you attend meet ings of the clubs or organizations you belong to? 1 to 4 times per year 03/25/2024 Are you , , di vorced, , never , or living with a partner? 03/25/2024 AUDIT-C Answer Date Recorded Q1: How often do you have a drink containing alc ohol? 2-3 times a week 01/03/2024 Q2: How many drinks containi ng alcohol do you have on a typical day when you are drinking? 1 or 2 01/03/2024 Q3: How often do you have si x or more drinks on one occasion? Never 01/03/2024 Overall Financial Resource Strain (CARDIA) Answe r Date Recorded How hard is it for you to pa y for the very basics like food, housing, medical care, and heating? Not hard at all 03/25/2024 PHQ-2 Answer Date Recorded PHQ-2 Total Score (If total score is 3 or more points, staff should administer the PHQ-9) 1 11/23/2021 Hunger Vital Sign Answer Date Recorded Within the past 12 months, y ou worried that your food would run out before you got the money to buy more. Never true 03/25/20 24 Within the past 12 months, t he food you bought just didn't last and you didn't have money to get more. Never true 03/25/2024 PRAPARE - Transportation Answer Date Re corded In the past 12 months, has l ack of transportation kept you from medical appointments or from getting medications? No 03/10 In the past 12 months, has l ack of transportation kept you from meetings, work, or from getting things needed for daily living? No 03/25/2024 Housing Stability Vital Sign Answer Sea e Recorded In the last 12 months, was t here a time when you were not able to pay the mortgage or rent on time? No 03/25/2024 In the past 12 months, how m any times have you moved where you were living? 0 03/25/2024 At any time in the past 12 m [facility], were you homeless or living in a correction (including now)? No 03/25/2024 Personal Safety Answer Date Recorded Have you ever been in or are you currently in a harmful physical or emotional relationship or is someone making you feel afraid or unsafe? 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 Not on file Not on file Not on file Last Filed Vital Signs Vital Sign Reading Time Taken Comments Blood Pressure 133/82 05/23/2024 7:04 PM CDT Pulse 85 05/23/2024 7:04 PM CDT Temperature 36.4 ??C (97.6 ??F) 05/23/2024 7:04 PM CD T Respiratory Rate 12 05/23/2024 7:04 PM CDT Oxygen Saturation 97% 05/23/2024 7:04 PM CDT Inhaled Oxygen Concentration - - Weight 103.4 kg (228 lb) 05/23/2024 7:04 PM CDT Height 177.8 cm (5' 10 ) 05/23/2024 7:04 PM CDT Body Mass Index 32.71 05/23/2024 7:04 PM CDT Plan of Treatment Not on file Medical Devices Implanted Type Area Lead Shop Operator Device Identifier Shelf Expiration Date Model / Serial / Lot [employer] Christine Synergy Xd Monorail 3mm 32mm 144cm Delivery System 1 Access Port [id number] - S0 - [id number] Implanted:Qty: 1 on 03/25/2024 by Abelardo Osman MD at [facility] Stent Left: Anterior Descending Cornary Artery [employer] Christine 08/12/2025 [id number] / 0 / [id number] [employer] Christine [id number] Synergy 3mm 16mm 144cm Radiopaque 1 Access Port Inflation Lumen - [id number] Implanted:Qty: 1 on 05/27/2018 by Tino Bess MD at [facility] [email or web address] Christine 12/24/2018 [id number] / / [id number] Procedures Procedure Name Priority Date/Time Associated Diagnosis Comments HEPATITIS PANEL, ACUTE Routine 07/26/2023 6:47 AM COUNTY RECORDS MANAGEMENT OFFICER Nonspecific abnormal results of liver function study COLONOSCOPY REPORT 10/10/2017 from Last 3 Months or Most Recently Relevant to Health Maintenance Results * Hepatitis panel, acute Blood (07/26/2023 6:47 AM COUNTY RECORDS MANAGEMENT OFFICER) Hep A IgM Nonreactive Nonreactive [facility] ([place]) Comment: Interpretive Data: If Hep A IgM Ab is reported as Equivocal, a new sample should be drawn in two weeks for testing. Current interpretive data was last revised on 19. Testing performed by: [facility], [address] [place] [address]., [id number] Hep B core IgM Nonreactive Nonreactive Huey [facility] ([place]) Comment: Interpretive Data If HepB Core IgM Ab is reported as Equivocal, a new sample should be drawn in two weeks for testing. Current interpretive data was last revised on 19. Testing performed by: [facility], [address] [place] [address]., [id number] Hep C Ab Nonreactive Nonreactive TENISHA [facility] ([place]) Comment: Interpretive Data Nonreactive: Antibodies to HCV not detected. Does NOT exclude the possibility of recent exposure to HCV. Equivocal: Equivocal for HCV antibodies. Supplemental molecular testing will be automatically performed to determine infection status in accordance with current CDC screening recommendations. ?? Reactive: Positive for HCV antibodies. ??This may represent current or past HCV infection. Supplemental molecular testing will be automatically performed to determine ??current infection status in accordance with current CDC screening recommendations. Interpretive data was last revised on 2019. Testing performed by: [facility], [address] [place] [address]., [id number] HepBsAg Nonreactive Nonreactive T[facility] ([place]) Comment:Testing performed by : [facility], [address] [place] [address]., [id number] Blood 07/26/2023 6:47 AM COUNTY RECORDS MANAGEMENT OFFICER 07/26/2023 9:08 AM COUNTY RECORDS MANAGEMENT OFFICER Doroteo Petersen [employer] F[employer]ER LAB MICROBIOLOGY - GENERAL ORDERABLES Final Result TENISHA [facility] ([place]) 1 [facility] Department of Laboratories [place], [place] [id number] * COLONOSCOPY REPORT (10/10/2017) Anatomical Region Laterality Modality Other us Provider Scanning GI PROCEDURE ORDERABLES Final Result from Last 3 Months or Most Recently Relevant to Health Maintenance [place] [address] Advance Directives For more information, please contact: [phone] * Full Code (Latest Code Status on File) Date Activated Date Inactivated Comments 03/24/2024 9:35 PM 03/26/2024 3:45 PM * Full Code Date Activated Date Inactivated Comments 09/01/2019 9:46 AM 09/01/2019 5:45 PM * Full Code Date Activated Date Inactivated Comments 12/04/2018 8:50 AM 12/04/2018 4:14 PM * Full Code Date Activated Date Inactivated Comments 05/27/2018 11:49 AM 05/28/2018 1:27 PM Care Teams Cake Puncher Relationship Specialty Start Date End Date Wesly Yang DO [address] [place] [id number] PCP - General Internal Medicine 12/08/16
--- OUTSIDE RECORDS SUMMARY | 2024-10-02 15:10 | XMS_ITS | Clinical Summary ---
Author Organization [facility] [employer] Address [address] [place] [address] Care Team Providers Care Facility Maintenance Supervisor Name Role Phone Wesly Yang DO Primary Care Provider [phone] Source Comments [facility] [employer],non-owned Affiliates and Associated Physician Practices is amultiple site organization consisting of ambulatory clinics and hospital sitesin [place], [place], [place] and [place]. This disclosure is being madepursuant to the Care Everywhere program and may not contain all informatio navailable regarding this patient. Last updated 18.[facility] [employer] Allergies Active Allergy Reactions Criticality Noted Date Comments Latex Rash High Lisinopril Urticaria Medium 10/04/2017 Penicillins Rash Medium 11/10/2011 Medications * Be aware that medications may not be up to date on this document. Alwaysverify current medications with the patient. Medication Sig Dispensed Refills Start Date End Date Status ezetimibe (ZETIA) 10 MG tablet TK 1 T PO QD 8 04/20/2018 Active ticagrelor (BRILINTA) 90 MG tablet TAKE 1 TABLET BY MOUTH TWICE DAILY 12/31/2017 Active losartan (COZAAR) 50 MG tablet TAKE 1 TABLET BY MOUTH EVERY DAY 11/14/2017 Active metoprolol succinate XL 24hr (TOPROL XL) 50 MG tablet TK 1 T PO QD 11 04/22/2018 Active nitroGLYCERIN (NITROSTAT) 0.4 MG tablet DISSOLVE ONE T UNDER THE TONGUE Q 5 MINUTES UTD 0 03/26/2018 Active omeprazole (PRILOSEC) 40 MG capsule 1 05/02/2018 Active rosuvastatin (CRESTOR) 40 MG tablet TAKE 1 TABLET BY MOUTH EVERY DAY 11/30/2017 Active Multiple Vitamins-Minerals (MULTIVITAL PO) Active methylPREDNISolone (MEDROL DOSEPAK) 4 MG tablet Take as directed 1 Each 05/12/2018 Active aspirin (ASPIRIN) 81 MG tablet Take 81 mg by mouth once daily Active Gratis-3 Fatty Acids (OMEGA III EPA+DHA PO) Active Active Problems No known active problems Immunizations Name Administration Dates Next Due TDAP (7yrs+) 02/08/2019 Social History Tobacco Use Types Packs/Day Years Used Date Smoking Tobacco: Never Smokeless Tobacco: Never Alcohol Use Standard Drinks/Week Comments Yes 6 (1 standard drink = 0.6 oz pur e alcohol) Sex and Gender Information Value Date Recorded Sex Assigned at Not on file Gender Identity Not on file Sexual Orientation Not on file Last Filed Vital Signs Vital Sign Reading Time Taken Comments Blood Pressure 139/85 02/08/2019 11:25 AM CDT Pulse 96 02/08/2019 11:25 AM CDT Temperature 36.7 ??C (98.1 ??F) 02/08/2019 11:25 AM C DT Respiratory Rate 16 02/08/2019 11:25 AM CDT Oxygen Saturation 100% 05/12/2018 10:38 AM CDT Inhaled Oxygen Concentration - - Weight 110.2 kg (243 lb) 02/08/2019 11:25 AM CDT Height 180.3 cm (5' 11 ) 02/08/2019 11:25 AM CDT Body Mass Index 33.89 02/08/2019 11:25 AM CDT Plan of Treatment Health Maintenance Due Date Last Done Comments COLOGUARD (AGES 45-75) - COL ON CA SCREENING 1966 COLON MONITORING 1966 COLONOSCOPY - COLON CA SCREENING 1966 CT COLONOGRAPHY - COLON CA SCREENING 1966 Colorectal Cancer Screening 1966 FIT - COLON CA SCREENING 1966 FLEX SIG - COLON CA SCREENING 1966 HIV SCREENING 1981 HEPATITIS C SCREENING 01/27/1984 HEPATITIS B VACCINE (1 of 3 - 19+ 3-dose series) 1985 PNEUMOCOCCAL VACCINE 50+ (1 of 1 - PCV) 02/01/2016 ZOSTER VACCINE (1 of 2) 02/01/2016 SCREENING FOR DIABETES 05/12/2018 COVID-19 VACCINE ( - 2023-2 5 season) 2024 INFLUENZA VACCINE (#1) 2024 05/27/2018 DEPRESSION SCREENING 09/10/2024 DTAP/TDAP/TD VACCINES (2 - T d or Tdap) 02/08/2029 02/08/2019 HIB VACCINE Aged Out No longer eligi ble based on patient's age to complete this topic HPV VACCINE Aged Out No longer eligi ble based on patient's age to complete this topic MENINGOCOCCAL (Group B) VACCINE Aged Out No longer eligible based on patient's age to complete this topic MENINGOCOCCAL VACCINE Aged Out No kinjal leana eligible based on patient's age to complete this topic PNEUMOCOCCAL VACCINE Aged Out No long er eligible based on patient's age to complete this topic Care Teams Facility Maintenance Supervisor Relationship Specialty Start Date End Date Wesly Yang DO [address] [place] [id number] PCP - General Internal Medicine 08/13/17
--- OUTSIDE RECORDS SUMMARY | 2024-10-02 15:10 | XMS_ITS | Patient Health Summary ---
Author Organization [facility] Address [address] [place] [address] Care Team Providers Care Paraffin Machine Operator Name Role Phone Celia Wesly Hedy SAUNDERS Primary Care Provider [phone] Note from [facility],non-owned Affiliates and Associated Physician Practices is amultiple site organization consisting of ambulatory clinics and hospital sitesin [place], [place], [place] and [place]. This disclosure is being madepursuant to the Care Everywhere program and may not contain all information available regarding this patient. Last updated 18.[facility] Allergies * Latex(Rash) -High Criticality * Lisinopril(Urticaria) -Medium Criticality * Penicillins(Rash) -Medium Criticality Medications * Be aware that medications may not be up to date on this document. Alwaysverify current medications with the patient. * ezetimibe (ZETIA) 10 MG tablet(Started 04/20/2018) TK 1 T PO QD 8 refills left * ticagrelor (BRILINTA) 90 MG tablet(Started 12/31/2017) TAKE 1 TABLET BY MOUTH TWICE DAILY * losartan (COZAAR) 50 MG tablet(Started 11/14/2017) TAKE 1 TABLET BY MOUTH EVERY DAY * metoprolol succinate XL 24hr (TOPROL XL) 50 MG tablet(Started 04/22/2018) TK 1 T PO QD 11 refills left * nitroGLYCERIN (NITROSTAT) 0.4 MG tablet(Started 03/26/2018) DISSOLVE ONE T UNDER THE TONGUE Q 5 MINUTES UTD * omeprazole (PRILOSEC) 40 MG capsule(Started 05/02/2018) 1 refill left * rosuvastatin (CRESTOR) 40 MG tablet(Started 11/30/2017) TAKE 1 TABLET BY MOUTH EVERY DAY * Multiple Vitamins-Minerals (MULTIVITAL PO) * methylPREDNISolone (MEDROL DOSEPAK) 4 MG tablet(Started 05/12/2018) Take as directed * aspirin (ASPIRIN) 81 MG tablet Take 81 mg by mouth once daily * Jameson-3 Fatty Acids (OMEGA III EPA+DHA PO) Active Problems No known active problems Immunizations * TDAP (7yrs+)(Given 02/08/2019) Social History Tobacco Use Types Packs/Day Years [...] Mass Index 33.89 02/08/2019 11:25 AM CDT Procedures * CT CHEST W CONTRAST(Performed 05/08/2018) Performed for Malignant neoplasm of left testis, unspecified whether descended or undescended (HCC) * CT ABDOMEN PELVIS W CONTRAST(Performed 08/14/2017) Performed for Seminoma of testis, left (HCC) * US SCROTUM W DOPPLER(Performed 08/13/2017) Performed for Malignant neoplasm of left testis, unspecified whether descended or undescended (HCC) * PATHOLOGY/GENETICS HISTORICAL-ONBASE(Performed 11/14/2011) * PATHOLOGY/GENETICS HISTORICAL-ONBASE(Performed 11/12/2011) * VIRAL CULTURE HERPES SIMPLEX+VARICELLA ZOSTER(Performed 11/10/2011) Results * CT CHEST WITH CONTRAST (05/08/2018 3:05 PM CDT) Anatomical Region Laterality Modality Chest Computed Tomogra phy 05/08/2018 3:23 PM CDT Impressions 05/08/2018 3:57 PM CDT 1. Extensive coronary artery atherosclerotic changes.. This is considerably more than what would be anticipated for a patient of 53 years of age 2. No suspicious pulmonary parenchymal mass lesions or adenopathy. Reading Radiologist: Aime Summers MD on 05/08/2018 at 3:57 PM Narrative 05/08/2018 3:[address] EXAMINATION OF THE CHEST INDICATION: ??53-year-old with prior testicular carcinoma, treated in 2001. Cough TECHNIQUE: ??Axial images of the chest were made during infusion of 80 mL of Omnipaque 350, intravenously. ??Images were reviewed at mediastinal and pulmonary parenchymal window settings. FINDINGS: ?? I do not have any prior CT images for comparison. I do not see any suspicious mediastinal, axillary or supraclavicular adenopathy. Dense atherosclerotic calcifications are seen in the left main, left anterior descending, circumflex and right coronary arteries. There is no pleural or pericardial effusion. Minimal hypoventilatory markings are seen in the dependent lung bases, bilaterally. I do not appreciate any pulmonary parenchymal mass/nodule or infiltrate. Degenerative changes are seen in the thoracic spine. Portions of the abdomen included in the study show no focal hepatic parenchymal mass lesions. There is no adrenal gland enlargement.. Procedure Note Aime Summers MD - 05/08/2018 CT EXAMINATION OF THE CHEST INDICATION: 53-year-old with prior testicular carcinoma, treated in 2001. Cough TECHNIQUE: Axial images of the chest were made during infusion of 80 mL of Omnipaque 350, intravenously. Images were reviewed at mediastinal and pulmonary parenchymal window settings. FINDINGS: I do not have any prior CT images for comparison. I do not see any suspicious mediastinal, axillary or supraclavicular adenopathy. Dense atherosclerotic calcifications are seen in the left main, left anterior descending, circumflex and right coronary arteries. There is no pleural or pericardial effusion. Minimal hypoventilatory markings are seen in the dependent lung bases, bilaterally. I do not appreciate any pulmonary parenchymal mass/nodule or infiltrate. Degenerative changes are seen in the thoracic spine. Portions of the abdomen included in the study show no focal hepatic parenchymal mass lesions. There is no adrenal gland enlargement.. IMPRESSION 1. Extensive coronary artery atherosclerotic changes.. This is considerably more than what would be anticipated for a patient of 53 years of age 2. No suspicious pulmonary parenchymal mass lesions or adenopathy. Reading Radiologist: Aime Summers MD on 05/08/2018 at 3:57 PM Owen Pham MD CT ORDERABLES * CT ABDOMEN AND PELVIS WITH IV CONTRAST (08/14/2017 9:23 AM LOG WASHER) Anatomical Region Laterality Modality Abdomen, Pelvis Computed Tomogra phy 08/14/2017 9:28 AM LOG WASHER Impressions 08/14/2017 9:34 AM LOG WASHER No evidence of metastatic disease. Narrative 08/14/2017 9:[address] Abdomen With Contrast CT Pelvis With Contrast Clinical Indication: Seminoma left testicle. Staging examination. COMPARISON: None. Technique: Axial CT images from the lung bases through the pubic symphysis were obtained following intravenous administration of Omnipaque 350 80 cc Findings: The imaged lungs are clear. The liver, spleen, stomach, duodenum, pancreas, adrenal glands, and gallbladder are all within normal limits. The kidneys enhance symmetrically. There is fullness of the renal pelvis and calyces on the right with transition to normal caliber ureter at the UPJ. Similar findings are seen on the left, but to a lesser extent. No obstructing stone or mass. These findings may reflect some degree of UPJ stricturing. There is no evidence of bowel obstruction, wall thickening, or inflammation. Appendix is not seen. Prior ventral hernia repair. 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 No inflammatory process seen. Prior retroperitoneal lymph node dissection. No residual/recurrent lymphadenopathy seen within the retroperitoneum. No peritoneal lymphadenopathy. No pelvic sidewall or inguinal lymphadenopathy. No osseous lesion identified. Procedure Note Tino Almanzar MD - 08/14/[address] With Contrast CT Pelvis With Contrast Clinical Indication: Seminoma left testicle. Staging examination. COMPARISON: None. Technique: Axial CT images from the lung bases through the pubic symphysis were obtained following intravenous administration of Omnipaque 350 80 cc Findings: The imaged lungs are clear. The liver, spleen, stomach, duodenum, pancreas, adrenal glands, and gallbladder are all within normal limits. The kidneys enhance symmetrically. There is fullness of the renal pelvis and calyces on the right with transition to normal caliber ureter at the UPJ. Similar findings are seen on the left, but to a lesser extent. No obstructing stone or mass. These findings may reflect some degree of UPJ stricturing. There is no evidence of bowel obstruction, wall thickening, or inflammation. Appendix is not seen. Prior ventral hernia repair. 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 No inflammatory process seen. Prior retroperitoneal lymph node dissection. No residual/recurrent lymphadenopathy seen within the retroperitoneum. No peritoneal lymphadenopathy. No pelvic sidewall or inguinal lymphadenopathy. No osseous lesion identified. IMPRESSION No evidence of metastatic disease. Owen Pham MD CT ORDERABLES * US SCROTUM WITH DOPPLER (08/13/2017 3:48 PM LOG WASHER) Anatomical Region Laterality Modality Pelvis Ultrasound 08/13/2017 3:53 PM LOG WASHER Impressions 08/13/2017 4:13 PM LOG WASHER Prior right orchiectomy No evidence of epididymitis or orchitis Small oblique hypoechogenicity in the left testicle. See differential discussion + recommendation in the Findings section of the report. Patient's symptoms may be related to varicocele. Narrative 08/13/2017 4:13 PM LOG WASHER Ultrasound of the scrotum and testicles with pulse Doppler imaging. COMPARISON: No relevant examinations. If there is additional/relevant outside imaging of this area, it can be submitted for retrospective comparison. HISTORY: History of prior right testicular tumor with resection. Palpable abnormality in the left scrotum. TECHNIQUE: High frequency ultrasound of the scrotum and testicles as performed by the technologist with DICOM image capture. Tarango scale images were obtained; additionally, Color Doppler and pulse wave Spectral Doppler interrogation was performed and interpreted. FINDINGS: Testicular Measurements: Left scrotum measures 5.5 x 3.3 cm RIGHT: Previously resected LEFT: Testicle: There is a prominent rete testis. No abnormal increased Doppler signal. There is a geographic subtle hypoechogenicity in the superior aspect of the left testicle best seen on series 1/2 image 37 measuring 8 x 2 millimeter transaxial. The can also be seen on series 1C image 59 frame 117. This does not have well-defined borders and may reflect sequela of prior scar infection. Tumor is felt unlikely but not excluded. Correlation with hormonal levels, tumor markers and clinical exam is recommended. In addition, If there is additional/relevant outside imaging of this area, it can be submitted for retrospective comparison. In the absence of prior available comparison, consider 6 month follow-up ultrasound. Preserved Doppler vascular flow. Epididymis: ? Within normal limits. No hydrocele. There is extensive left scrotal varicoceles including extensive varicosities around the testicular cortex, for example series 1/2 image 57 Procedure Note Marquise Page MD - 08/13/2017 Ultrasound of the scrotum and testicles with pulse Doppler imaging. COMPARISON: No relevant examinations. If there is additional/relevant outside imaging of this area, it can be submitted for retrospective comparison. HISTORY: History of prior right testicular tumor with resection. Palpable abnormality in the left scrotum. TECHNIQUE: High frequency ultrasound of the scrotum and testicles as performed by the technologist with DICOM image capture. Tarango scale images were obtained; additionally, Color Doppler and pulse wave Spectral Doppler interrogation was performed and interpreted. FINDINGS: Testicular Measurements: Left scrotum measures 5.5 x 3.3 cm RIGHT: Previously resected LEFT: Testicle: There is a prominent rete testis. No abnormal increased Doppler signal. There is a geographic subtle hypoechogenicity in the superior aspect of the left testicle best seen on series 1/2 image 37 measuring 8 x 2 millimeter transaxial. The can also be seen on series 1C image 59 frame 117. This does not have well-defined borders and may reflect sequela of prior scar infection. Tumor is felt unlikely but not excluded. Correlation with hormonal levels, tumor markers and clinical exam is recommended. In addition, If there is additional/relevant outside imaging of this area, it can be submitted for retrospective comparison. In the absence of prior available comparison, consider 6 month follow-up ultrasound. Preserved Doppler vascular flow. Epididymis: Within normal limits. No hydrocele. There is extensive left scrotal varicoceles including extensive varicosities around the testicular cortex, for example series 1/2 image 57 IMPRESSION Prior right orchiectomy No evidence of epididymitis or orchitis Small oblique hypoechogenicity in the left testicle. See differential discussion + recommendation in the Findings section of the report. Patient's symptoms may be related to varicocele. Owen Pham MD US ORDERABLES * PATHOLOGY/GENETICS HISTORICAL-ONBASE (11/14/2011) Only the most recent of2 resultswithin the time period is included. 11/14/2011 Historical Provider LAB - CHEMISTRY O RDJIGNA Performing Organization Address City/[facility]/ZIP Co de Phone Number [facility] * (ABNORMAL) VIRAL CULTURE HERPES SIMPLEX+VARICELLA ZOSTER (11/10/2011 9:45 AM LOG WASHER) Viral Culture Rapid Varicella (A) [facility] Comment: Positive Varicella zoster detected by immunofluorescent monoclonal antibody staining in spin amplified shell vial culture. 11/10/2011 9:45 AM LOG WASHER 11/10/2011 10:50 PM LOG WASHER Narrative [facility] ([place]) - 11/14/2011 3:36 PM LOG WASHER Performed at: ??01 - [facility] ??[id number] County Auditor: Rafa Garcia MD, Phone: ??[phone] Dionna Frias MD LAB - MICROBIOLOGY O RDJIGNA [facility] ([place]) Care Teams Paraffin Machine Operator Relationship Specialty Start Date End Date Wesly Yang DO [address] [place] [phone] PCP - General Internal Medicine 08/13/17
--- OUTSIDE RECORDS SUMMARY | 2024-10-02 15:10 | XMS_ITS | Clinical Summary ---
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 He was unable to have colonoscopy at age 51 due to a cardiac condition requiring the use of Brilinta. His partridge farmer did not want him to be off of Brilinta for at least a year and he has been on it for 15 months now. I will schedule colonoscopy for screening with Dr. Espino. Heartburn 10/04/2017 Assessment & Plan (10/04/2017 3:46 PM LANDSCAPE TECHNICIAN): He is not having any heartburn on the pantoprazole. He has been on it for six months, so I will step him down to ranitidine 150 mg 1 tab po twice a day. If this does not control symptoms, I will order EGD for evaluation. I discussed GERD diet with him. Coronary artery disease invo [place]ving [place] coronary artery of [place] heart without angina pectoris 04/16/2017 Assessment & Plan (11/08/2023 3:21 PM LANDSCAPE TECHNICIAN): Stable, without angina. I made no change in his excellent medical regimen today. I asked him to follow up with me annually, or sooner if needed. I again advised him to continue to diet and exercise regularly. Assessment & Plan (11/06/2022 11:11 AM LANDSCAPE TECHNICIAN): Stable, without angina. I made no change in his excellent medical regimen today, except to increase Norvasc to 10 mg daily for better blood pressure control. I asked him to follow up with me annually, or sooner if needed. I again advised him to continue to diet and exercise regularly. Assessment & Plan (07/25/2022 3:33 PM LANDSCAPE TECHNICIAN): Stable, without angina. I made no change in his excellent medical regimen today. I asked him to follow up with me annually, or sooner if needed. I again advised him to diet and exercise regularly. Assessment & Plan (07/19/2021 3:47 PM LANDSCAPE TECHNICIAN): Stable, without angina. I made no change in his excellent medical regimen today. I asked him to follow up with me annually, or sooner if needed. I again advised him to diet and exercise regularly. Assessment & Plan (07/13/2020 3:12 PM LANDSCAPE TECHNICIAN): Stable, without angina. I made no change [...] 04/16/2017 Assessment & Plan (11/08/2023 3:21 PM LANDSCAPE TECHNICIAN): Well controlled. Continue same therapy. Continue diet and exercise Assessment & Plan (11/06/2022 11:11 AM LANDSCAPE TECHNICIAN): Blood pressure is running high. As above, I increased Norvasc to 10 mg daily. Otherwise, continue same therapy. Continue diet and exercise. I asked him to continue to monitor his blood pressure carefully at home, and to report if it remains elevated. Assessment & Plan (07/25/2022 3:33 PM LANDSCAPE TECHNICIAN): Blood pressure is well controlled. Continue same therapy. Continue diet and exercise. Assessment & Plan (07/19/2021 3:48 PM LANDSCAPE TECHNICIAN): Blood pressure is well controlled. Continue same therapy. Continue diet and exercise. Assessment & Plan (07/13/2020 3:13 PM LANDSCAPE TECHNICIAN): Blood pressure is borderline today, but is [...] 04/16/2017 Assessment & Plan (11/08/2023 3:21 PM LANDSCAPE TECHNICIAN): Well controlled. Continue high-intensity statin therapy plus Zetia. Assessment & Plan (11/06/2022 11:12 AM LANDSCAPE TECHNICIAN): Lipids are well controlled. Continue high-intensity statin therapy plus Zetia. Assessment & Plan (07/25/2022 3:34 PM LANDSCAPE TECHNICIAN): Lipids are well controlled. Continue high-intensity statin therapy. Assessment & Plan (07/19/2021 3:48 PM LANDSCAPE TECHNICIAN): Lipids are well controlled. Continue high-intensity statin therapy plus Zetia. Assessment & Plan (07/13/2020 3:13 PM LANDSCAPE TECHNICIAN): Lipids are well controlled. Continue high-intensity statin [...] (05/21/2018): Added automatically from request for surgery [id number] Encounters Date Type Department Care Team Description 09/24/2024 Telephone [facility] [address] [place] [address] Abelardo Osman MD Medical Records Request from Last 3 Months Immunizations Name Administration Dates Next Due Flucelvax Influenza Quad MDI 08/08/2016 Influenza, Quadrivalent, Candace l Culture-based MDCK, Preservative Free, Antibiotic Free, Intramuscular 07/24/2019,10/15/2017 Influenza, Quadrivalent, Rec ombinant, Egg Free, Preservative Free, Intramuscular 07/04/2022,09/06/2021 Influenza, Quadrivalent, Spl it, Preservative Free, Intramuscular 07/20/2020,07/24/2019,05/27/2018,10/16,10/11/2015 Influenza, Trivalent, IM (MDV) 08/13/2013,2012 MMR 12/28/1993 Pneumococcal Polysaccharide PPV23 08/08/2016 Tdap 02/08/2019 ZOSTER Recombinant 07/24/2019 Surgical History Surgery Date Site/Laterality Comments CORONARY ANGIOPLASTY Coronary angioplasty KNEE ARTHROSCOPY Right Arthroscopy knee SHOULDER SURGERY right shoulder surgery LAPAROSCOPIC INCISIONAL / UMBILICAL / VENTRAL HERNIA REPAIR 09/10/2015 - 09/09/2016 Laparoscopic repair of multiple incisional ventral hernia's SURGERY SCROTAL / TESTICULAR 09/10/2001 - 09/09/2002 Right testicular cancer surgery x 2 ANTERIOR CRUCIATE LIGAMENT REPAIR Right repair ACL & MCL on right knee COLONOSCOPY 10/10/2017 Normal. Repeat in 10 yrs for screening purposes. 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 History of cancer chemotherapy 2001 r ight testicular and lymph node cancer GERD (gastroesophageal reflux disease) Diabetes mellitus (HCC) Type # 2 Neuromuscular disorder (HCC) Siatica Family History Medical History Relation Name Comments Heart attack Father Deshawn Myocardial infa rction; Cause of : Myocardial infarction Heart disease Other Heart disease; Relation Name Status Comments Father Deshawn Mother Alive Other Social History Tobacco Use Types Packs/Day Years Used Date Smoking Tobacco: Never Smokeless Tobacco: Never Tobacco Cessation:Counseling Given: Not Answered Alcohol Use Standard Drinks/Week Comments Yes 0 (1 standard drink = 0.6 oz pur e alcohol) occasion [facility] Utilities Answer Date Recorded In the past 12 months has th e electric, gas, oil, or water company threatened to [...] often do you attend chur ch or adventism services? 1 to 4 times per year 03/25/2024 Do you belong to any clubs o r organizations such as protestant groups, unions, fraternal or athletic groups, or [...] any time in the past 12 [place], were you homeless or living in a halfway (including now)? No 03/25/2024 Personal Safety Answer Date Recorded Have you ever been in or are you currently in a harmful physical or emotional relationship or is someone making you feel afraid or unsafe? 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 Not on file Not on file Not on file Obstetrics History Last Filed Vital Signs Vital Sign Reading [...] 05/23/2024 7:04 PM CDT Plan of Treatment Health Maintenance Due Date Last Done Comments Prostate Cancer Screening-PSA 1966 Regular Well Visit/Exam 18-64 02/01/1984 Pneumococcal vaccine <65 (2 of 2 - PCV) 08/08/2017 08/08/2016 Zoster Vaccine (2 of 2) 09/18/2019 07/24/2019 Depression Screening 11/23/2022 11/23/2021, 11/24/19 22 Covid-19 Vaccine (5 - 2023-2 5 season) 2024 07/04/2022, 09/06/2021, 12/10/2020, Additional history exists Influenza Vaccine (#1) 2024 2, 09/06/2021, 07/20/2020, Additional history exists Colon Cancer Screening-Colonoscopy 10/10/2027 10/10/2017 DTaP/Tdap/Td Vaccine (2 - Td or Tdap) 02/08/2029 02/08/2019 Colon Cancer Screening-CT Colonography Discontinued 10/10/2017 Colon Cancer Screening-DNA Stool Discontinued 10/10/19 18 Colon Cancer Screening-FIT Discontinued 10/10/2017 Colon Cancer Screening-Sigmoidoscopy Discontinued 10/10/2017 Hepatitis B Screening Completed 07/26/2023 Hepatitis C Screening Completed 07/26/2023 Medical Devices Implanted Type Area Industrial Technologist Device Identifier Shelf Expiration Date Model / Serial / Lot [employer] Synergy Xd Monorail 3mm 32mm 144cm Delivery System 1 Access Port [id number] - S0 - [id number] Implanted:Qty: 1 on 03/25/2024 by Abelardo Osman MD at [facility] Stent Left: Anterior Descending Cornary Artery [employer] Christine 08/12/2025 [id number] / 0 / [id number] [employer] Christine [id number] Synergy 3mm 16mm 144cm Radiopaque 1 Access Port Inflation Lumen - [id number] Implanted:Qty: 1 on 05/27/2018 by Tino Bess MD at [facility] [employer] Christine 12/24/2018 [id number] / / [id number] Procedures Procedure Name Priority Date/Time Associated Diagnosis Comments HEPATITIS PANEL, ACUTE Routine 07/26/2023 6:47 AM LANDSCAPE TECHNICIAN Nonspecific abnormal results of liver function study COLONOSCOPY REPORT 10/10/2017 from Last 3 Months or Most Recently Relevant to Health Maintenance Results * Hepatitis panel, acute Blood (07/26/2023 6:47 AM LANDSCAPE TECHNICIAN) Hep A IgM Nonreactive Nonreactive TENISHA SUMMERS ([place]ARON) Comment: Interpretive Data: If Hep A IgM Ab is reported as Equivocal, a new sample should be drawn in two weeks for testing. Current interpretive data was last revised on 19. Testing performed by: [facility], [address] [place] [address]., [id number] Hep B core IgM Nonreactive Nonreactive C SIDDHARTHER KRISTOPHER (AARON) Comment: Interpretive Data If HepB Core IgM Ab is reported as Equivocal, a new sample should be drawn in two weeks for testing. Current interpretive data was last revised on 19. Testing performed by: [facility], [address] [place] [address]., [id number] Hep C Ab Nonreactive Nonreactive TENISHA SUMMERS [...] last revised on 2019. Testing performed by: [facility], [address] [place] [address]., [id number] HepBsAg Nonreactive Nonreactive TENISHA SUMMERS (AARON) Comment:Testing performed by : [address] [id number] Blood 07/26/2023 6:47 AM LANDSCAPE TECHNICIAN 07/26/2023 9:08 AM LANDSCAPE TECHNICIAN us Doroteo Petersen NP LAB MICROBIOLOGY - GENERAL ORDERABLES Final Result TENISHA KRISTOPHER (AARON) 1 [facility] Department [place] [address] * COLONOSCOPY REPORT (10/10/2017) Anatomical Region Laterality Modality Other us Provider Scanning GI PROCEDURE ORDERABLES Final Result from Last 3 Months or Most Recently Relevant to Health Maintenance [place] [employer] [place] [employer] [place] [employer] [place] Advance Directives For more information, please contact: [phone] * Full Code (Latest Code Status on File) Date Activated Date Inactivated Comments 03/24/2024 9:35 PM 03/26/2024 3:45 PM * Full Code Date Activated Date Inactivated Comments 09/01/2019 9:46 AM 09/01/2019 5:45 PM * Full Code Date Activated Date Inactivated Comments 12/04/2018 8:50 AM 12/04/2018 4:14 PM * Full Code Date Activated Date Inactivated Comments 05/27/2018 11:49 AM 05/28/2018 1:27 PM Care Teams Direct Sales Professional Relationship Specialty Start Date End Date Wesly Yang DO [address] [place] [id number] PCP - General Internal Medicine 12/08/16
--- OUTSIDE RECORDS SUMMARY | 2024-10-02 15:10 | XMS_ITS | Referral Summary ---
Author Organization [facility] Address [address] [place] [address] Care Team Providers Care Production Corrugator Name Role Phone Wesly Yang DO Primary Care Provider [phone] Source Comments [facility],non-owned Affiliates and Associated Physician Practices is amultiple site organization consisting of ambulatory clinics and hospital sitesin [place], [place], [place] and [place]. This disclosure is being madepursuant to the Care Everywhere program and may not contain all information available regarding this patient. Last updated 18.[facility] Allergies Active Allergy Reactions Criticality Noted Date [...] 81 mg by mouth once daily Active [place]-3 Fatty Acids (OMEGA III EPA+DHA PO) Active [...] 02/08/2019 11:25 AM CDT Plan of Treatment Not on file Care Teams Production Corrugator Relationship Specialty Start Date End Date Wesly Yang DO [address] [place] [phone] PCP - General Internal Medicine 08/13/17
== END 2024-09-30 17:30 | disposition home or self-care (01) ==
PROVIDERS: Visit Provider Orthopaedic Surgery
PROC: (CPT 29860; principal; 2024-09-30 13:30)
DX: M70.61 Trochanteric bursitis, right hip (principal); E11.9 Type 2 diabetes mellitus without complications; Z79.84 Long term (current) use of oral hypoglycemic drugs; Z79.85 Long-term (current) use of injectable non-insulin antidiabetic drugs; E66.9 Obesity, unspecified; Z68.33 Body mass index [BMI] 33.0-33.9, adult
CPT/HCPCS: 27062; 27299; 82948; A9270; J0690; J1100; J1171; J1885; J2003; J2250; J2405; J2704; J3010; J7120

== ENCOUNTER 2024-11-12 06:39 | Outpatient (CLI) | payer BC, SELFPAY ==
--- NOTE | ~2024-11-12 | XR_ITS ---
AP view of the pelvis and AP and lateral views of the right hip Clinical history: Pain Findings: No acute fracture or dislocation is seen. Osseous alignment is anatomic. Bilateral hip and SI joint spaces are preserved. Soft tissues are unremarkable. Impression: No significant abnormality is seen. Reviewed, dictated and finalized at [facility]. TER CREASER SLOTTER HELPER Impression: No significant abnormality is seen.
--- NOTE | ~2024-11-12 | XR_ITS ---
Right Knee Technique: AP, lateral, and sunrise views were obtained. Clinical History: Pain Findings: No fracture or dislocation is seen. Osseous alignment is anatomic. Joint spaces are preserv ed without degenerative or erosive change. There is a large probable loose body measuring 2.7 x 1.6 c m posterior to the proximal tibia, possibly within a Armas's cyst.. No joint effusion is seen. Impression: 2.7 x 1.6 cm probable loose body posterior to the proximal tibia. Reviewed, dictated and finalized at location M. ECTIONAL PROGRAM SPECIALIST Impression: 2.7 x 1.6 cm probable loose body posterior to the proximal tibia.
--- OUTSIDE RECORDS SUMMARY | 2024-11-12 06:43 | XMS_ITS | Clinical Summary ---
Author Organization [facility] Address [address] [place] [address] Care Team Providers Care Imagery Intelligence Name Role Phone Celia Wesly Hedy SAUNDERS Primary Care Provider [phone] Source Comments [facility],non-owned Affiliates and Associated Physician Practices is amultiple site organization consisting of ambulatory clinics and hospital sitesin [place], [place], [place] and [place]. This disclosure is being madepursuant to the Care Everywhere program and may not contain all informatio navailable regarding this patient. Last updated 18.[facility] Allergies Active Allergy Reactions Criticality Noted Date [...] 81 mg by mouth once daily Active [place]-3 Fatty Acids (OMEGA III EPA+DHA PO) Active [...] 96 02/08/2019 11:25 AM CDT Temperature 36.7 C (98.1 F) 02/08/2019 11:25 AM CDT Respiratory Rate 16 02/08/2019 11:25 AM CDT [...] age to complete this topic Care Teams Imagery Intelligence Relationship Specialty Start Date End Date Wesly Yang DO [address] [place] [phone] PCP - General Internal Medicine 08/13/17
--- OUTSIDE RECORDS SUMMARY | 2024-11-12 06:43 | XMS_ITS | Patient Health Summary ---
Author Organization [facility] Address [address] [place] [address] Care Team Providers Care Fashion Artist Name Role Phone CeliaWesly Hedy SAUNDERS Primary Care Provider [phone] Note from [facility],non-owned Affiliates and Associated Physician Practices is amultiple site organization consisting of ambulatory clinics and hospital sitesin [place], [place], [place] and [place]. This disclosure is being madepursuant to the Care Everywhere program and may not contain all information available regarding this patient. Last updated 18.[facility] Allergies * Latex(Rash) -High Criticality * Lisinopril(Urticaria) [...] 81 mg by mouth once daily * Cornell-3 Fatty Acids (OMEGA III EPA+DHA PO) Active [...] CDT CT EXAMINATION OF THE CHEST INDICATION: 53-year-old [...] PELVIS WITH IV CONTRAST (08/14/2017 9:23 AM DIRECTOR OF OPTIMIZATION) Anatomical Region Laterality Modality Abdomen, Pelvis Computed Tomogra phy 08/14/2017 9:28 AM DIRECTOR OF OPTIMIZATION Impressions 08/14/2017 9:34 AM DIRECTOR OF OPTIMIZATION No evidence of metastatic disease. Narrative 08/14/2017 9:[address] Abdomen With Contrast CT Pelvis With [...] US SCROTUM WITH DOPPLER (08/13/2017 3:48 PM DIRECTOR OF OPTIMIZATION) Anatomical Region Laterality Modality Pelvis Ultrasound 08/13/2017 3:53 PM DIRECTOR OF OPTIMIZATION Impressions 08/13/2017 4:13 PM DIRECTOR OF OPTIMIZATION Prior right orchiectomy No evidence of epididymitis or orchitis Small oblique hypoechogenicity in the left testicle. See differential discussion + recommendation in the Findings section of the report. Patient's symptoms may be related to varicocele. Narrative 08/13/2017 4:13 PM DIRECTOR OF OPTIMIZATION Ultrasound of the scrotum and testicles with [...] 11/14/2011 Historical Provider LAB - CHEMISTRY O RDERABLES [facility] * (ABNORMAL) VIRAL CULTURE HERPES SIMPLEX+VARICELLA ZOSTER (11/10/2011 9:45 AM DIRECTOR OF OPTIMIZATION) Viral Culture Rapid Varicella (A) [facility] Comment: Positive Varicella zoster detected by immunofluorescent monoclonal antibody staining in spin amplified shell vial culture. 11/10/2011 9:45 AM DIRECTOR OF OPTIMIZATION 11/10/2011 10:50 PM DIRECTOR OF OPTIMIZATION Narrative [facility] ([place]) - 11/14/2011 3:36 PM DIRECTOR OF OPTIMIZATION Performed at: [facility] [id number] Legal Consultant: Rafa Garcia MD, Phone: [phone] Dionna Frias MD LAB - MICROBIOLOGY O RDERABLES [facility] ([facility] Care Teams Fashion Artist Relationship Specialty Start Date End Date Wesly Yang DO [address] [place] [phone] PCP - General Internal Medicine 08/13/17
--- OUTSIDE RECORDS SUMMARY | 2024-11-12 06:43 | XMS_ITS | Referral Summary ---
Author Organization [facility] Address [address] [place] [address] Care Team Providers Care Reservoir Engineer Name Role Phone Celia Wesly Hedy SAUNDERS Primary Care Provider [phone] Source Comments [facility],non-owned Affiliates and Associated Physician Practices is amultiple site organization consisting of ambulatory clinics and hospital sitesin [place], [place], [place] and [place]. This disclosure is being madepursuant to the Care Everywhere program and may not contain all information available regarding this patient. Last updated 18.[facility] Allergies Active Allergy Reactions Criticality Noted Date [...] 81 mg by mouth once daily Active [place]-3 Fatty Acids (OMEGA III EPA+DHA PO) Active [...] of Treatment Not on file Care Teams Reservoir Engineer Relationship Specialty Start Date End Date Crancer, Wesly A, DO [address] [place] [phone] PCP - General Internal Medicine 08/13/17
--- OUTSIDE RECORDS SUMMARY | 2024-11-12 06:44 | XMS_ITS | Referral Summary ---
Author Organization [facility] Address [address] [place] [address] Care Team Providers Care Rug Dyer Helper Name Role Phone Wesly Yang DO Primary Care Provider Encounters Date Type Department Care Team Description 10/28/2024 3:00 PM CUSTOMER SERVICE SALES ASSOCIATE Office Visit [facility] [address] [place] [address] [address] [place] [address] Marquise Silva MD PhD Coronary artery disease involving [place] coronary artery of [place] heart without angina pectoris (Primary Dx) 09/24/2024 Telephone [facility] [address] [place] [address] [address] [place] [address] Abelardo Osman MD Medical Records [...] capsule Take 400 mg by mouth Active losartan (COZAAR) 100 mg tablet Take 1 tablet (100 mg total) by mouth daily Active milk thistle 150 mg capsule Take by mouth Active turmeric root extract 500 mg capsule Take by mouth Active lhvnh-st-3-dha-ep u-zftugcw-zqr 1,000-230-60 mg capsule Take by mouth Active valACYclovir (VALTREX) 1 gram tablet TAKE [...] TWICE DAILY 60 tablet 3 4 Active Mounjaro 7.5 mg/0.5 mL pen injector injection Inject 0.5 mL (7.5 mg total) under the skin once a week 4 Active cyclobenzaprine (FLEXERIL) 10 mg tablet Take 1 tablet (10 mg total) by mouth as needed 5 Active hydrALAZINE (APRESOLINE) 25 mg tabletIndications :hypertension Take 1 tablet (25 mg total) by mouth 2 (two) times a day 180 tablet 3 5 10/28/19 25 Discontinu ed(Therapy completed) Active Problems Problem Noted Date Diagnosed Date Coronary artery disease invo lving [place] coronary artery of [place] heart with angina pectoris 03/26/2024 Chest pain [...] (08/21/2019): Added automatically from request for surgery [id number] Diarrhea 06/24/2019 Unstable angina 12/03/2018 Overview (12/03/2018): Added automatically from request for surgery [id number] Skin neoplasm 07/01/2018 Overview (08/30/2023): Note: -on low abdomen area-will follow RBBB 05/02/2018 Encounter for screening for malignant neoplasm o f colon 10/04/2017 Assessment & Plan (10/04/2017 3:43 PM CUSTOMER SERVICE SALES ASSOCIATE): He has never had colonoscopy. He was unable to have colonoscopy at age 51 due to a cardiac condition requiring the use of Brilinta. His agricultural equipment salesperson did not want him to be off of Brilinta for at least a year and he has been on it for 15 months now. I will schedule colonoscopy for screening with Dr. Espino. Heartburn 10/04/2017 Assessment & Plan (10/04/2017 3:46 PM CUSTOMER SERVICE SALES ASSOCIATE): He is not having any heartburn on the pantoprazole. He has been on it for six months, so I will step him down to ranitidine 150 mg 1 tab po twice a day. If this does not control symptoms, I will order EGD for evaluation. I discussed GERD diet with him. Coronary artery disease invo [place]ving [place] coronary artery of [place] heart without angina pectoris 04/16/2017 Assessment & Plan (11/08/2023 3:21 PM CUSTOMER SERVICE SALES ASSOCIATE): Stable, without angina. I made no change in his excellent medical regimen today. I asked him to follow up with me annually, or sooner if needed. I again advised him to continue to diet and exercise regularly. Assessment & Plan (11/06/2022 11:11 AM CUSTOMER SERVICE SALES ASSOCIATE): Stable, without angina. I made no change in his excellent medical regimen today, except to increase Norvasc to 10 mg daily for better blood pressure control. I asked him to follow up with me annually, or sooner if needed. I again advised him to continue to diet and exercise regularly. Assessment & Plan (07/25/2022 3:33 PM CUSTOMER SERVICE SALES ASSOCIATE): Stable, without angina. I made no change in his excellent medical regimen today. I asked him to follow up with me annually, or sooner if needed. I again advised him to diet and exercise regularly. Assessment & Plan (07/19/2021 3:47 PM CUSTOMER SERVICE SALES ASSOCIATE): Stable, without angina. I made no change in his excellent medical regimen today. I asked him to follow up with me annually, or sooner if needed. I again advised him to diet and exercise regularly. Assessment & Plan (07/13/2020 3:12 PM CUSTOMER SERVICE SALES ASSOCIATE): Stable, without angina. I made no change [...] 04/16/2017 Assessment & Plan (11/08/2023 3:21 PM CUSTOMER SERVICE SALES ASSOCIATE): Well controlled. Continue same therapy. Continue diet and exercise Assessment & Plan (11/06/2022 11:11 AM CUSTOMER SERVICE SALES ASSOCIATE): Blood pressure is running high. As above, I increased Norvasc to 10 mg daily. Otherwise, continue same therapy. Continue diet and exercise. I asked him to continue to monitor his blood pressure carefully at home, and to report if it remains elevated. Assessment & Plan (07/25/2022 3:33 PM CUSTOMER SERVICE SALES ASSOCIATE): Blood pressure is well controlled. Continue same therapy. Continue diet and exercise. Assessment & Plan (07/19/2021 3:48 PM CUSTOMER SERVICE SALES ASSOCIATE): Blood pressure is well controlled. Continue same therapy. Continue diet and exercise. Assessment & Plan (07/13/2020 3:13 PM CUSTOMER SERVICE SALES ASSOCIATE): Blood pressure is borderline today, but is [...] 04/16/2017 Assessment & Plan (11/08/2023 3:21 PM CUSTOMER SERVICE SALES ASSOCIATE): Well controlled. Continue high-intensity statin therapy plus Zetia. Assessment & Plan (11/06/2022 11:12 AM CUSTOMER SERVICE SALES ASSOCIATE): Lipids are well controlled. Continue high-intensity statin therapy plus Zetia. Assessment & Plan (07/25/2022 3:34 PM CUSTOMER SERVICE SALES ASSOCIATE): Lipids are well controlled. Continue high-intensity statin therapy. Assessment & Plan (07/19/2021 3:48 PM CUSTOMER SERVICE SALES ASSOCIATE): Lipids are well controlled. Continue high-intensity statin therapy plus Zetia. Assessment & Plan (07/13/2020 3:13 PM CUSTOMER SERVICE SALES ASSOCIATE): Lipids are well controlled. Continue high-intensity statin [...] (05/21/2018): Added automatically from request for surgery [id number] Immunizations Immunization Administration Dates Next Due Flucelvax Influenza Quad [...] = 0.6 oz pur e alcohol) occasion [facility] Utilities Answer Date Recorded In the past 12 months has [employer], gas, oil, or water company threatened to [...] often do you attend chur ch or evangelical services? 1 to 4 times per year 03/25/2024 Do you belong to any clubs o r organizations such as pentecostalism groups, unions, fraternal or athletic groups, or [...] any time in the past 12 m [facility], were you homeless or living in a long-term (including now)? No 03/25/2024 Personal Safety Answer Date Recorded Have you ever been in or are you currently in a harmful physical or emotional relationship or is someone making you feel afraid or unsafe? 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 Not on file Not on file Not on file Last Filed Vital Signs Vital Sign Reading Time Taken Comments Blood Pressure 120/72 10/28/2024 2:59 PM CUSTOMER SERVICE SALES ASSOCIATE Pulse 104 10/28/2024 2:59 PM CUSTOMER SERVICE SALES ASSOCIATE Temperature 36.4 C (97.6 F) 05/23/2024 7:04 PM CDT Respiratory Rate 12 05/23/2024 7:04 PM CDT Oxygen Saturation 96% 10/28/2024 2:59 PM CUSTOMER SERVICE SALES ASSOCIATE Inhaled Oxygen Concentration - - Weight 105.7 kg (233 lb) 10/28/2024 2:59 PM CUSTOMER SERVICE SALES ASSOCIATE Height 177.8 cm (5' 10 ) 10/28/2024 2:59 PM CUSTOMER SERVICE SALES ASSOCIATE Body Mass Index 33.43 10/28/2024 2:59 PM CUSTOMER SERVICE SALES ASSOCIATE Plan of Treatment Not on file Medical Devices Implanted Type Area Hired Hand Device Identifier Shelf Expiration Date Model / Serial / Lot [employer] Christine Synergy Xd Monorail 3mm 32mm 144cm Delivery System 1 Access Port [id number] - S0 - [id number] Implanted:Qty: 1 on 03/25/2024 by Abelardo Osman MD at [facility] Stent Left: Anterior Descending Cornary Artery [employer] Christine 08/12/2025 [id number] / 0 / [id number] [employer] Christine [id number] Synergy 3mm 16mm 144cm Radiopaque 1 Access Port Inflation Lumen - [id number] Implanted:Qty: 1 on 05/27/2018 by Tino Bess MD at [facility] [employer] Christine 12/24/2018 [id number] / / [id number] Procedures Procedure Name Priority Date/Time Associated Diagnosis Comments HEPATITIS PANEL, ACUTE Routine 07/26/2023 6:47 AM CUSTOMER SERVICE SALES ASSOCIATE Nonspecific abnormal results of liver function study COLONOSCOPY REPORT 10/10/2017 from Last 3 Months or Most Recently Relevant to Health Maintenance Results * Hepatitis panel, acute Blood (07/26/2023 6:47 AM CUSTOMER SERVICE SALES ASSOCIATE) Hep A IgM Nonreactive Nonreactive [facility] ([facility]) Comment: Interpretive Data: If Hep A IgM Ab is reported as Equivocal, a new sample should be drawn in two weeks for testing. Current interpretive data was last revised on 19. Testing performed by: [address] [address] Hep B core IgM Nonreactive Nonreactive [facility] ([facility]) Comment: Interpretive Data If HepB Core IgM Ab is reported as Equivocal, a new sample should be drawn in two weeks for testing. Current interpretive data was last revised on 19. Testing performed by: [facility], [address] [place] [address]., [id number] Hep C Ab Nonreactive Nonreactive [facility] ([facility]) Comment: Interpretive Data Nonreactive: Antibodies to HCV not detected. Does NOT exclude the possibility of recent exposure to HCV. Equivocal: Equivocal for HCV antibodies. Supplemental molecular testing will be automatically performed to determine infection status in accordance with current CDC screening recommendations. Reactive: Positive for HCV antibodies. This may represent current or past HCV infection. Supplemental molecular testing will be automatically performed to determine current infection status in accordance with current CDC screening recommendations. Interpretive data was last revised on 2019. Testing performed by: [facility], [address] [place] [address]., [id number] HepBsAg Nonreactive Nonreactive [facility] ([facility]) Comment:Testing performed by : [address] [id number] Blood 07/26/2023 6:47 AM CUSTOMER SERVICE SALES ASSOCIATE 07/26/2023 9:08 AM CUSTOMER SERVICE SALES ASSOCIATE Doroteo Petersen REFIN[facility] SUPERINTENDENT LAB MICROBIOLOGY - GENERAL ORDERABLES Final Result [facility] ([place]) [address] [facility] Department [place] [address] * COLONOSCOPY REPORT (10/10/2017) Anatomical Region Laterality Modality Other us Provider Scanning GI PROCEDURE ORDERABLES Final Result from Last 3 Months or Most Recently Relevant to Health Maintenance Insurance [facility] Advance Directives For more information, please contact: [phone] * Full Code (Latest Code Status on File) Date Activated Date Inactivated Comments 03/24/2024 9:35 PM 03/26/2024 3:45 PM * Full Code Date Activated Date Inactivated Comments 09/01/2019 9:46 AM 09/01/2019 5:45 PM * Full Code Date Activated Date Inactivated Comments 12/04/2018 8:50 AM 12/04/2018 4:14 PM * Full Code Date Activated Date Inactivated Comments 05/27/2018 11:49 AM 05/28/2018 1:27 PM Care Teams Rug Dyer Helper Relationship Specialty Start Date End Date Wesly Yang DO [address] [place] [id number] PCP - General Internal Medicine 12/08/16
--- OUTSIDE RECORDS SUMMARY | 2024-11-12 06:44 | XMS_ITS | Data Portability ---
Author Organization [facility], Telehealth Address [address], [address] [place] [address] Care Team Providers Care Investor Relations Specialist Name Role Phone KEVIN NANCY Primary Care Provider [phone] Assessment Encounter Date Assessment Date Assessment LastModified by Organization Details LastModified Time 08/09/2020 08/09/2020 thin SK vs benign nevus, R frontal hairline discussed options of no treatment vs shave removal pt elects removal with shave removal with our office or Dr Duran discussed with Dr Duran-pt planning to keep his piyush this afternoon for cosmetic shave removal Not available 08/15/2020 16:37:55 01/22/2023 01/22/2023 neoplasm - recommend biopsy site: L medial forearm ddx: atypical nevus Eczema-flaring Discussed diagnosis and can flare at times Recommend liberal use of emollients to prevent flares Recommend treatment with triamcinolone 0.1% cream BID x 2 wks Acrochordons, noninflamed, bilateral axilla Discussed diagnosis Discussed options no treatment vs return for cosmetic snip removal Seborrheic keratoses - diagnosis reviewed. Pt reassured. Discussed no treatment needed. Angioma - diagnosis reviewed. Patient reassured. Discussed no treatment needed. Benign nevi-discussed not suspicious Recommend monitor for changes. fbse 1 yr Photoprotection discussed. Use of a broad-spectrum sunscreen SPF 30 or higher recommended. Not available 01/22/2023 18:23:40 02/12/2023 02/12/2023 Seborrheic keratoses, R neck and L lower back - diagnosis reviewed. Pt reassured. Discussed no treatment vs cosmetic LN Patient elects cosmetic LN x 2 Acrochordons bilateral axilla Discussed diagnosis Cosmetic snip removal x 3 sites Not available 02/18/2023 23:21:10 08/27/2023 08/27/2023 Seborrheic keratoses - diagnosis reviewed. Pt reassured. Discussed no treatment needed. Benign nevi-discussed not suspicious Recommend monitor for changes. History of atypical junctional melanocytic proliferation. no evidence of recurrence fbse 6 mo Photoprotection discussed. Use of a broad-spectrum sunscreen SPF 30 or higher recommended. Not available 08/27/2023 18:37:58 10/28/2024 10/28/2024 Inflamed and crusted SK(s)-Discussed benign. Discussed treatment options of no rx vs LN pt elects LN x 1 R midchest Seborrheic keratoses - diagnosis reviewed. Pt reassured. Discussed no treatment needed. Lentigines - diagnosis reviewed. Recommend avoid sun exposure and use sun protection. Recommend monitor for changes. Benign nevi-discussed not suspicious Recommend monitor for changes. History of atypical junctional melanocytic proliferation. No evidence of recurrence fbse 6 mo Photoprotection discussed. Use of a broad-spectrum sunscreen SPF 30 or higher recommended. Not available 10/28/2024 11:15:59 Plan of Treatment Reminders Order Date Submit Date Provider Last Modified By Organization Details Last Modified Time Details Appointments EXISTI DIAMOND PT Full Skin Check 2024 10:45A M [facility] D[facility]at[facility] Not available Not available Not available Lab pathol ogy, skin 2022 023 [facility], [facility] [address], [place], [address], 02/01/2023 11:11:31 Referral None record ed. Procedures None record ed. Surgeries None record ed. Imaging None record ed. Medication Orders triamc inolon e aceton cassie 0.1 % topica l cream 2022 023 [id number], [address], [place], [id number], 01/22/2023 17:03:50 Patient TargetsNo targets recorded. Patient InstructionsNo instructions recorded. Reason for Referral None Reported. Results Created Date Observation Date Name Description Value Unit Range Abnormal Flag Note LastModifiedBy Organization Detail LastModifiedTime Result Notes None recorded. 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 Procedures Surgical History Date Name Laterality Status Provider Name and Address Organization Details Recorded Time 5 Cryosurgery benign lesions 1 completed Shamika Del Real MD [address] [place] [address], [address], [place], [address], AT[facility] Del Real MD 11/02/2024 18:10:48 3 Cryosurgery benign lesions 1 completed Shamika Del Real MD [address] [place] [address], [facility] [address], [place], [address], ATIYA Del Real MD 02/18/2023 23:21:22 3 skin tag removal completed Shamika Del Real MD [address] [place] [address], [address], [place], [address], AT[facility] Del Real MD 02/18/2023 23:21:45 3 Shave Biopsy single completed Chrissy Del Real MD 01/22/2023 17:05:31 Imaging Results None recorded. Procedure Notes None recorded. Medical Equipment None Reported. Allergies Allergen ID Allergen Name Allergen Category Reaction Reaction Severity Criticality Documentation Date Start Date Code Code System Note Provider Name and Address Organization Details Recorded Time 86923 lisinopri l medicatio n hives rash Not available Not available Not available 09/05/20232016 27833 RxNorm Other react ions and sever ities : 'Urti caria '. Shamika Del Real MD [address] [place] [address], [address], [place], [address], ATIYA Del Real MD 3 19:12:07 66231 latex environme nt,medica tion rash Not available Not available 09/05/2023 95743 91 RxNorm Other react ions and sever ities : 'Blis ters' . Shamika Del Real MD [address] [place] [address], [address], [place], [address], ATIYA Del Real MD 3 19:12:07 5192 Product containin g penicilli n (product) medicatio n rash Not available Not available 08/09/20202011 97809 8001 SNOMED Shamika Del Real MD [address] [place] [address], [address], [place], [address], ATIYA Del Real MD 3 19:12:07 Medications Name Sig Start Date Stop Date Status Note LastModified by Organization Details LastModified Time lancets mis 33g active Not Available Not Available Not Available losartan 50 mg tablet TK 1 T PO QD active Not Available Not Available No t Available cyclobenzap rine 10 mg tablet TAKE 1 TABLET BY MOUTH AT BEDTIME NEEDED active Not Available Not Available No t Available metformin 500 mg tablet TAKE 1 TABLET BY MOUTH TWICE DAILY active Not Available Not Available No t Available carvedilol 25 mg tablet active Not Available Not Available Not Available doxycycline hyclate 100 mg capsule TK 1 C PO BID 08/09 completed Not Available Not Available Not Available cetirizine 10 mg tablet 10 mg by oral route. active Not Available Not Available No t Available potassium gluconate 2.5 mEq tablet 99 mg by oral route. active Not Available Not Available No t Available benzonatate 200 mg capsule TK ONE C PO TID active Not Available Not Available No t Available metoprolol succinate ER 50 mg tablet,exte nded release 24 hr TK 1 T PO QD active Not Available Not Available No t Available valacyclovi r 1 gram tablet TAKE 1 TABLET BY MOUTH EVERY 8 HOURS FOR 7 DAYS active Not Available Not Available No t Available hydrocodone 5 mg-acetamin ophen 325 mg tablet TAKE 1 TO 2 TABLETS BY MOUTH EVERY 4 TO 6 HOURS NEEDED FOR PAIN FOR 5 DAYS. MAX DAILY DOSE 8 TABLETS active Not Available Not Available No t Available prednisone 20 mg tablet TK 2 TS PO QD FOR 3 DAYS 08/09 completed Not Available Not Available Not Available isosorbide mononitrate ER 30 mg tablet,exte nded release 24 hr active Not Available Not Available Not Available hydralazine 25 mg tablet active Not Available Not Available Not Available acetaminoph en 300 mg-codeine 30 mg tablet TAKE 1 TO 2 TABLETS BY MOUTH EVERY 4 TO 6 HOURS NEEDED FOR PAIN. DO NOT TAKE MORE THAN 11 TABLETS PER DAY active Not Available Not Available No t Available amlodipine 5 mg tablet 01/22 completed Not Available Not Available Not Available hydrocodone 10 mg-acetamin ophen 325 mg tablet TAKE 1 TABLET BY MOUTH EVERY 6 HOURS NEEDED 08/09 completed Not Available Not Available Not Available omeprazole 40 mg capsule,del ayed release 01/22 completed Not Available Not Available Not Available aspirin 81 mg tablet,sadia yed release 81 mg by oral route. active Not Available Not Available No t Available triamcinolo ne acetonide 0.1 % topical cream USE TO AFFECTED AREAS ON THE TRUNK AND EXTREMITI ES BID UP TO 2 WEEKS WITH FLARES. AVOID USE ON THE FACE, NECK OR SKIN FOLDS. active Not Available Not Available No t Available amlodipine 10 mg tablet 10 mg by oral route. 11/07 completed Not Available Not Available Not Available nitroglycer in 0.4 mg sublingual tablet 0.4 mg by sublingua l route. active Not Available Not Available No t Available gabapentin 300 mg capsule TK ONE C PO D 08/09 completed Not Available Not Available Not Available omeprazole 20 mg capsule,del ayed release TAKE 1 CAPSULE BY MOUTH DAILY active Not Available Not Available No t Available methylpredn isolone 4 mg tablets in a dose pack TK PO UTD 08/09 completed Not Available Not Available Not Available losartan 100 mg tablet active Not Available Not Available Not Available metformin ER 500 mg tablet,exte nded release 24 hr TAKE 1 TABLET BY MOUTH EVERY DAY active Not Available Not Available No t Available doxycycline hyclate 100 mg tablet TAKE 1 TABLET BY MOUTH TWICE DAILY FOR 10 DAYS active Not Available Not Available No t Available azithromyci n 500 mg tablet TAKE 1 TABLET BY MOUTH DAILY 01/22 completed Not Available Not Available Not Available ezetimibe 10 mg tablet TAKE 1 TABLET BY MOUTH EVERY DAY active Not Available Not Available No t Available rosuvastati n 40 mg tablet TAKE 1 TABLET BY MOUTH EVERY DAY active Not Available Not Available No t Available aspirin active Not Available Not Avail able Not Available Zyrtec active Not Available Not Availa ble Not Available ProAir HFA 90 mcg/actuati on aerosol inhaler INL 2 PFS PO Q 4 TO 6 H PRN active Not Available Not Available No t Available cholecalcif qing (vitamin D3) 1,250 mcg (50,000 unit) capsule TK ONE C PO Q WK active Not Available Not Available No t Available Brilinta 90 mg tablet TAKE 1 TABLET BY MOUTH TWICE DAILY active Not Available Not Available No t Available Contour Next Test Strips USE TO TEST BLOOD SUGARS THREE TIMES DAILY active Not Available Not Available No t Available Contour Next EZ Meter USE TO TEST BLOOD SUGARS THREE TIMES DAILY active Not Available Not Available No t Available lancets 33 gauge USE TO TEST BLOOD SUGARS THREE TIMES DAILY active Not Available Not Available No t Available Fluzone Quad (PF) 60 mcg (15 mcg x 4)/0.5 mL IM syringe ADM 0.5ML IM UTD 08/09 completed Not Available Not Available Not Available Ozempic 1 mg/dose (4 mg/3 mL) subcutaneou s pen injector INJECT 1MG UNDER THE SKIN EVERY WEEK active Not Available Not Available No t Available Ozempic 2 mg/dose (8 mg/3 mL) subcutaneou s pen injector INJECT 2 MG UNDER THE SKIN ONCE A WEEK active Not Available Not Available No t Available Mounjaro 7.5 mg/0.5 mL subcutaneou s pen injector INJECT 7.5MG UNDER THE SKIN ONCE WEEKLY active Not Available Not Available No t Available Mounjaro 5 mg/0.5 mL subcutaneou s pen injector active Not Available Not Available Not Available Mounjaro 2.5 mg/0.5 mL subcutaneou s pen injector INJECT 2.5 MG UNDER THE SKIN EVERY WEEK ROTATING INJECTION SITES active Not Available Not Available No t Available Ozempic 0.25 mg or 0.5 mg (2 mg/3 mL) subcutaneou s pen injector INJECT 0.25MG UNDER THE SKIN ONE DAY A WEEK FOR 4 WEEKS active Not Available Not Available No t Available Vitals Date Recorded Body temperature Provider Name a nd Address Organization Details Last Updated DateTime 08/09/2020 97 [degF] Elijah Del Real MD 08/09/2020 12:38:43 Social History Question Answer Notes LastModified by Organizat ion Details LastModified Time Tobacco Smoking Status Never Smoker [facility] Dumont MD 08/09/2020 12:34:55 What Is Your Level Of Alcohol Consumption? Occasional Information not available 08/09/2020 In The 14 Days Before Symptom Onset, Have You Had Close Contact With A Laboratory-confirm ed COVID-19 While That Case Was Ill? No [email or web address] Information n ot available 08/09/2020 In The 14 Days Before Symptom Onset, Have You Had Close Contact With A Person Who Is Under Investigation For COVID-19 While That Person Was Ill? No [email or web address] Information not available 08/09/2020 Have You Been To An Area Known To Be High Risk For COVID-19? No [email or web address] Information not available 08/09/2020 Does Patient Have Any Fever, Cough, Sore Throat Or New Shortness Of Breath? No [email or web address] Information not available 08/09/2020 What Was The Date Of Your Most Recent Tobacco Screening? 10/28/2024 [email or web address] Information not available 10/28/2024 Sun Exposure Moderate [email or web address] Information not available 08/09/2020 Do You Use Sunscreen Routinely? Yes [email or web address] Information not available 08/09/2020 Tanning Bed Exposure No [email or web address] Information not available 08/09/2020 Sex: Unknown Functional Status None recorded. Mental Status None recorded. Family History Nothing Reported. Medical History Condition Response Hyperthyroidism N Defibrillator N Hypothyroidism N Pacemaker N Anemia N Diabetes N Bleeding Disorder N Arthritis N Cancer Y Stroke N Asthma N Lupus N HIV/AIDS N Psoriasis N Hepatitis N Heart Disease Y Hypertension N Past Encounters Encounter ID Performer Location Encounter Start Date Encounter Closed Date Diagnosis/Indication Diagnosis SNOMED-CT Code Diagnosis ICD10 Code Diagnosis Note [id number] Shamika Del Real MD Main Office [address] [place] [address] 08/09/2020 12:29:33 08/09/2020 14:46:03 Neoplasm of uncertain behavior of skin 07292617 D48.5 [id number] Shamika Del Real MD Main Office [address] [place] [phone] 01/22/2023 15:58:01 01/22/2023 17:15:17 Eczema 00992847 L20.84 Neoplasm o f uncertain behavior of skin 91647846 D48.5 Multiple skin tags 48580 7009 L91.8 Melanocyti c nevus of trunk 691788558 D22.5 [id number] Shamika Del Real MD Main Office [address] [place] [phone] 02/12/2023 16:20:49 02/12/2023 16:49:10 Seborrheic keratosis 284055201 L82.1 Multiple skin tags 91770 7009 L91.8 [id number] Shamika Del Real MD Main Office [address] [place] [phone] 08/27/2023 15:58:55 08/27/2023 17:16:20 Seborrheic keratosis 800711304 L82.1 Melanocyti c nevus of trunk 808536886 D22.5 [id number] Shamika Del Real MD Main Office [address] [place] [phone] 10/28/2024 10:54:47 10/28/2024 11:26:23 Inflamed seborrheic keratosis 308072768 L82.0 Seborrheic keratosis 394 620894 L82.1 Melanocyti c nevus of trunk 923218613 D22.5 Health Concerns Section Related Observation LastModified by Organization Detai ls LastModified Time None Recorded Concern Status LastModified by Organization Details LastModified Time None Recorded Advance Directives Directive None Recorded Payers Encounter Date Sequence Insurance Name Policy Number Policy Ambrocio Covered Member ID Ambrocio Member ID Guarantor Name 08/09/2020 1 [place] [id number] Anaid Romeroke [id number] Anaid Howe 01/22/2023 1 [place] [id number] Anaid Howe [id number] Anaid Krishnamurthyellsamantha 02/12/2023 1 [place] [id number] Anaid Krishnamurthyellke [id number] Anaid Krishnamurthyellsamantha 08/27/2023 1 [place] [id number] Anaid Krishnamurthyellke [id number] Anaid Krishnamurthyellsamantha 10/28/2024 1 [place] [id number] Anaid Howe [id number] Anaid Howe Notes Date Note Type Note Provider Name and Address Organization Details Recorded Time 08/09/2020 text/html COVID-19 protoco l. Pt waited in car prior to appt, called in for visit for checkin and rooming. Patient screening questions performed during call in car: No fever, cough, loss of taste or smell, or shortness of breath. Patient denies current diagnosis or pending testing of COVID-19 or recent exposure to any individual with known or current testing for COVID-19. Patient and staff masked for duration of visit. spot R worship/hairlinex not sure how longno symptomsnot treatingno bleeding or itchingpresent for yearshe notes his hairdresser has noticed the spothe has been referred by Dr Duran and wanted to have checked to determine removal optionshe is scheduled with Dr Duran for treatment this afternoon Patient's completed past medical history form was reviewed.no hx skin cancerno f/c Shamika Del Real MD [address] [facility], [address], [place], [address], [place] [facility] - Shamika Del Real MD 08/15/2020 16:38:08 01/22/2023 text/html COVID-19 protoco l. Patient and any caregivers/family present screened to confirm no current COVID-19 symptoms, diagnosis, or recent known exposure to COVID-19 virus. Full body skin check skin tag under right and left underarmsSore at times bump inside of the R earwhite spotx 6 monthsnot sore or tender no other bleeding spots, changing moles, or sores that don't want to heal. Shamika Del Real MD [address] [place] [address], [facility] [address], [place], [address], ATIYA Del Real MD 01/29/2023 22:32:50 02/12/2023 text/html COVID-19 protoco l. Patient and any caregivers/family present screened to confirm no current COVID-19 symptoms, diagnosis, or recent known exposure to COVID-19 virus. Skin tag removalskin tags under the arms also with rough area on the L backrough bump on the R neck Shamika Del Real MD [address] [place] [address], [place] [address], [place], [address], ATIYA Del Real MD 02/18/2023 23:22:03 08/27/2023 text/html Full body skin c heck new diagnosis Diabeteshe notes he has been losing weight and also started treatment with metformindoing well no other bleeding spots, changing moles, or sores that don't want to heal. Shamika Del Real MD [address] [place] [address], [facility] [address], [place], [address], ATIYA Del Real MD 09/05/2023 19:13:19 10/28/2024 text/html Full body skin c heck Spot R chest6 monthshard, sometimes gets sore, no irritationno treatment, patient would like to discuss removal no other bleeding spots, changing moles, or sores that don't want to heal. Shamika Del Real MD [address] [place] [address], [address], [place], [address], ATIYA Del Real MD 11/02/2024 18:11:38
--- OUTSIDE RECORDS SUMMARY | 2024-11-12 06:44 | XMS_ITS | Clinical Summary ---
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 He was unable to have colonoscopy at age 51 due to a cardiac condition requiring the use of Brilinta. 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 I will schedule colonoscopy for screening with Dr. Espino. Heartburn 10/04/2017 Assessment & Plan (10/04/2017 3:46 PM CHORUS MASTER): He is not having any heartburn on the pantoprazole. He has been on it for six months, so I will step him down to ranitidine 150 mg 1 tab po twice a day. If this does not control symptoms, I will order EGD for evaluation. I discussed GERD diet with him. Coronary artery disease invo lving muscogee coronary artery of muscogee heart without angina pectoris 04/16/2017 Assessment & Plan (11/08/2023 3:21 PM CHORUS MASTER): Stable, without angina. I made no change in his excellent medical regimen today. I asked him to follow up with me annually, or sooner if needed. I again advised him to continue to diet and exercise regularly. Assessment & Plan (11/06/2022 11:11 AM CHORUS MASTER): Stable, without angina. I made no change in his excellent medical regimen today, except to increase Norvasc to 10 mg daily for better blood pressure control. I asked him to follow up with me annually, or sooner if needed. I again advised him to continue to diet and exercise regularly. Assessment & Plan (07/25/2022 3:33 PM CHORUS MASTER): Stable, without angina. I made no change in his excellent medical regimen today. I asked him to follow up with me annually, or sooner if needed. I again advised him to diet and exercise regularly. Assessment & Plan (07/19/2021 3:47 PM CHORUS MASTER): Stable, without angina. I made no change in his excellent medical regimen today. I asked him to follow up with me annually, or sooner if needed. I again advised him to diet and exercise regularly. Assessment & Plan (07/13/2020 3:12 PM CHORUS MASTER): Stable, without angina. I made no change [...] 04/16/2017 Assessment & Plan (11/08/2023 3:21 PM CHORUS MASTER): Well controlled. Continue same therapy. Continue diet and exercise Assessment & Plan (11/06/2022 11:11 AM CHORUS MASTER): Blood pressure is running high. As above, I increased Norvasc to 10 mg daily. Otherwise, continue same therapy. Continue diet and exercise. I asked him to continue to monitor his blood pressure carefully at home, and to report if it remains elevated. Assessment & Plan (07/25/2022 3:33 PM CHORUS MASTER): Blood pressure is well controlled. Continue same therapy. Continue diet and exercise. Assessment & Plan (07/19/2021 3:48 PM CHORUS MASTER): Blood pressure is well controlled. Continue same therapy. Continue diet and exercise. Assessment & Plan (07/13/2020 3:13 PM CHORUS MASTER): Blood pressure is borderline today, but is [...] 04/16/2017 Assessment & Plan (11/08/2023 3:21 PM CHORUS MASTER): Well controlled. Continue high-intensity statin therapy plus Zetia. Assessment & Plan (11/06/2022 11:12 AM CHORUS MASTER): Lipids are well controlled. Continue high-intensity statin therapy plus Zetia. Assessment & Plan (07/25/2022 3:34 PM CHORUS MASTER): Lipids are well controlled. Continue high-intensity statin therapy. Assessment & Plan (07/19/2021 3:48 PM CHORUS MASTER): Lipids are well controlled. Continue high-intensity statin therapy plus Zetia. Assessment & Plan (07/13/2020 3:13 PM CHORUS MASTER): Lipids are well controlled. Continue high-intensity statin [...] (05/21/2018): Added automatically from request for surgery [id number] Encounters Date Type Department Care Team Description 10/28/2024 3:00 PM CHORUS MASTER Office Visit [facility] [address] [place] [address] [address] [address] Marquise Silva MD PhD Coronary artery disease involving muscogee coronary artery of muscogee heart without angina pectoris (Primary Dx) 09/24/2024 Telephone [facility] [address] [place] [address] [address] [address] Abelardo Osman MD Medical Records Request from Last 3 Months Immunizations Immunization Administration Dates Next Due Flucelvax [...] CORONARY STENT PLACEMENT 2015 UPPER GASTROINTESTINAL ENDOSCOPY HIP SURGERY 09/27/2024 [facility] Medical History Medical History Date Comments Hypercholesterolemia High choles terol; Comments: GDS 09/21/2015 - Multiple environmental allergies Allergies, environmental; Comments: GDS 09/21/2015 - Coronary artery disease Testicular carcinoma, 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 Utilities Answer Date Recorded In the past 12 months has e electric, gas, oil, or water [employer] threatened to shut off services in your [...] often do you attend chur ch or advent services? 1 to 4 times per year 03/25/2024 Do you belong to any clubs o r organizations such as latter day groups, unions, fraternal or athletic groups, or [...] any time in the past 12 m [facility], were you homeless or living in a care home (including now)? No 03/25/2024 Personal Safety Answer Date Recorded Have you ever been in or are you currently in a harmful physical or emotional relationship or is someone making you feel afraid or unsafe? 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 Not on file Not on file Not on file Obstetrics History Last Filed Vital Signs Vital Sign Reading Time Taken Comments Blood Pressure 120/72 10/28/2024 2:59 PM CHORUS MASTER Pulse 104 10/28/2024 2:59 PM CHORUS MASTER Temperature 36.4 C (97.6 F) 05/23/2024 7:04 PM CDT Respiratory Rate 12 05/23/2024 7:04 PM CDT Oxygen Saturation 96% 10/28/2024 2:59 PM CHORUS MASTER Inhaled Oxygen Concentration - - Weight 105.7 kg (233 lb) 10/28/2024 2:59 PM CHORUS MASTER Height 177.8 cm (5' 10 ) 10/28/2024 2:59 PM CHORUS MASTER Body Mass Index 33.43 10/28/2024 2:59 PM CHORUS MASTER Plan of Treatment Health Maintenance Due Date Last Done Comments Prostate Cancer Screening-PSA 1966 Regular Well Visit/Exam 18-64 02/01/1984 Pneumococcal vaccine <65 (2 of 2 - PCV) 08/08/2017 08/08/2016 Zoster Vaccine (2 of 2) 09/18/2019 07/24/2019 Depression Screening 11/23/2022 11/23/2021, 11/24/19 22 Covid-19 Vaccine (2023-2 5 season) 2024 07/04/2022, 09/06/2021, 12/10/2020, Additional history exists Influenza Vaccine (#1) 2024 , 09/06/2021, 07/20/2020, Additional history exists Colon Cancer Screening-Colonoscopy 10/10/2027 10/10/2017 DTaP/Tdap/Td Vaccine (2 - Td or Tdap) 02/08/2029 02/08/2019 Colon Cancer Screening-CT Colonography Discontinued 10/10/2017 Colon Cancer Screening-DNA Stool Discontinued 10/10/19 18 Colon Cancer Screening-FIT Discontinued 10/10/2017 Colon Cancer Screening-Sigmoidoscopy Discontinued 10/10/2017 Hepatitis B Screening Completed 07/26/2023 Hepatitis C Screening Completed 07/26/2023 Medical Devices Implanted Type Area Decision Analyst Device Identifier Shelf Expiration Date Model / Serial / Lot [employer] Christine Synergy Xd Monorail 3mm 32mm 144cm Delivery System 1 Access Port [id number] - S0 - [id number] Implanted:Qty: 1 on 03/25/2024 by Abelardo Osman MD at [facility] Stent Left: Anterior Descending Cornary Ar[employer] Christine 08/12/2025 [id number] / 0 / [id number] [employer] Christine [id number] Synergy 3mm 16mm 144cm Radiopaque 1 Access Port Inflation Lumen - [id number] Implanted:Qty: 1 on 05/27/2018 by Tino Bess MD at [facility] [employer] 12/24/2018 [id number] / / [id number] Procedures Procedure Name Priority Date/Time Associated Diagnosis Comments HEPATITIS PANEL, ACUTE Routine 07/26/2023 6:47 AM CHORUS MASTER Nonspecific abnormal results of liver function study COLONOSCOPY REPORT 10/10/2017 from Last 3 Months or Most Recently Relevant to Health Maintenance Results * Hepatitis panel, acute Blood (07/26/2023 6:47 AM CHORUS MASTER) Hep A IgM Nonreactive Nonreactive [facility] ([facility]) Comment: Interpretive Data: If Hep A IgM Ab is reported as Equivocal, a new sample should be drawn in two weeks for testing. Current interpretive data was last revised on 19. Testing performed by: [address] [id number] Hep B core IgM Nonreactive Nonreactive [facility] ([facility]) Comment: Interpretive Data If HepB Core IgM Ab is reported as Equivocal, a new sample should be drawn in two weeks for testing. Current interpretive data was last revised on 19. Testing performed by: [facility], [address] [place] [address]., [id number] Hep C Ab Nonreactive Nonreactive [facility] ([facility]) Comment: Interpretive Data Nonreactive: Antibodies [...] last revised on 2019. Testing performed by: [address] [id number] HepBsAg Nonreactive Nonreactive [facility] ([facility]) Comment:Testing performed by : [address] [id number] Blood 07/26/2023 6:47 AM CHORUS MASTER 07/26/2023 9:08 AM CHORUS MASTER Doroteo Petersen NP LAB MICROBIOLOGY - GENERAL ORDERABLES Final Result [facility] ([facility]) [facility] Department [place] [address] * COLONOSCOPY REPORT (10/10/2017) Anatomical Region Laterality Modality Other Provider Scanning GI PROCEDURE ORDERABLES Final Result from Last 3 Months or Most Recently Relevant to Health Maintenance [place] [employer] [place] [facility] Advance Directives For more information, please contact: [phone] * Full Code (Latest Code Status on File) Date Activated Date Inactivated Comments 03/24/2024 9:35 PM 03/26/2024 3:45 PM * Full Code Date Activated Date Inactivated Comments 09/01/2019 9:46 AM 09/01/2019 5:45 PM * Full Code Date Activated Date Inactivated Comments 12/04/2018 8:50 AM 12/04/2018 4:14 PM * Full Code Date Activated Date Inactivated Comments 05/27/2018 11:49 AM 05/28/2018 1:27 PM Care Teams Rn Integrated Relationship Specialty Start Date End Date Wesly Yang DO [address] [place] [id number] PCP - General Internal Medicine 12/08/16
--- OUTSIDE RECORDS SUMMARY | 2024-11-12 06:44 | XMS_ITS | Data Portability ---
Author Organization [facility], [facility] Address [address] [address] Care Team Providers Care Museum Librarian Name Role Phone NANCY BROWN Primary Care Provider Unavailabl e Assessment Encounter Date Assessment Date Assessment LastModified by Organization Details LastModified Time 03/09/2020 03/09/2020 Would like to obtain patient s MRI, which the pt will leaf size picker and bring to us. Will reevaluate at that time. The patients case and treatment plan were reviewed in detail with Dr. Barnes. Patient given information regarding same. May follow up if wishes to pursue. Return for worsening symptoms. Greater than 15 minutes was spent with the patient in direct evaluation and subsequent care planning. [email or web address] Not available 03/09/2020 20:39:58 Plan of Treatment Reminders Order Date Submit Date Provider Last Modified By Organization Details Last Modified Time Details Appointments None recorded. Lab PSA, serum or plasma 020 JUDY Not available 0 13:29:26 CBC w/ auto diff 020 JUDY Not available 0 13:29:25 vitamin D, 25-hydrox y, total, serum 020 [email or web address] Not available 0 10:16:23 testoster one, free, serum 020 Not available 0 10:16:23 testoster one, total, serum 020 JUDY Not available 0 13:29:26 Referral None recorded. Procedures None recorded. Surgeries None recorded. Imaging XR, knee - room 8 020 020 Not available 0 10:16:23 Medication Orders None recorded. Patient TargetsNo targets recorded. Patient InstructionsNo instructions recorded. Reason for Referral None Reported. Results Created Date Observation Date Name Description Value Unit Range Abnormal Flag Note LastModifiedBy Organization Detail LastModifiedTime Result Notes None recorded. Problems No Known Problems Procedures Surgical History Date Name Laterality Status Provider Name and Address Organization Details Recorded Time 0 Generic Procedure completed Virgen Araiza [place] [facility], [place] 03/09/2020 14:46:26 0 Generic Procedure completed ANDRZEJ NELSON [address], [place], [address] [place] - [facility], [facility] 10/14/2019 10:14:51 Shoulder Surgery completed Sheree RAJPUT [facility], [facility] 10/14/2019 08:59:03 Back Surgery completed Sheree Ritter [place] [facility], [facility] 10/14/2019 08:59:03 Hernia Repair completed Sheree Ritter [place] [facility], [facility] 10/14/2019 08:59:03 Knee Surgery completed Sheree Delgadoofsamantha [place] [facility], [facility] 10/14/2019 08:59:03 Stent completed Sheree Ritter [place] [facility], [facility] 10/14/2019 08:59:03 Imaging Results None recorded. Procedure Notes None recorded. Medical Equipment None Reported. Allergies Allergen ID Allergen Name Allergen Category Reaction Reaction Severity Criticality Documentation Date Start Date Code Code System Note Provider Name and Address Organization Details Recorded Time 90055 Product containin g penicilli n (product) medicatio n Not available Not available Not available 10/14/2019 48185 8001 SNOMED Sheree Ritter [facility] [place] - [facility], [facility] 0 08:58:36 Medications Name Sig Start Date Stop Date Status Note LastModified by Organization Details LastModified Time compounded medication Apply 0.5mL cream to upper inner thigh, proximal to scrotum, twice daily for 90 days. 2019 active Not Available Not Available Not Avai lable losartan 50 mg tablet active Not Available Not Available Not Available doxycycline hyclate 100 mg capsule active Not Available Not Available Not Available metoprolol succinate ER 50 mg tablet,extende d release 24 hr active Not Available Not Available Not Available prednisone 20 mg tablet active Not Available Not Available No t Available hydrocodone 10 mg-acetaminoph en 325 mg tablet Take 1 tablet every 6 hours by oral route as needed. active Not Available Not Available No t Available omeprazole 40 mg capsule,delaye d release active Not Available Not Available No t Available nitroglycerin 0.4 mg sublingual tablet active Not Available Not Available Not Available gabapentin 300 mg capsule active Not Available Not Available N ot Available methylpredniso lone 4 mg tablets in a dose pack active Not Available Not Available No t Available ezetimibe 10 mg tablet active Not Available Not Available No t Available rosuvastatin 40 mg tablet active Not Available Not Available Not Available ProAir HFA 90 mcg/actuation aerosol inhaler active Not Available Not Available Not Available cholecalcifero l (vitamin D3) 1,250 mcg (50,000 unit) capsule Take 1 capsule every week by oral route. 2019 active Not Available Not Available Not Avai lable Brilinta 90 mg tablet active Not Available Not Available Not Available Shingrix (PF) 50 mcg/0.5 mL intramuscular suspension, kit active Not Available Not Available Not Available Flucelvax Quad (PF) 60 mcg (15 mcg x 4)/0.5 mL IM syringe active Not Available Not Available Not Available Vitals Date Recorded Body height Body mass index (BMI) Body weight Heart rate Systolic blood pressure Diastolic blood pressure Provider Name and Address Organization Details Last Updated DateTime 0 179.07 cm 33.9 kg/m2 526926. 17 g 90 /min 155 mm[Hg] 85 mm[Hg] Sheree Delgadoindiana [facility] Spyder Lynk [facility], [facility] 0 08:58:17 Date Recorded Body height Body mass index (BMI) Body weight Heart rate Systolic blood pressure Diastolic blood pressure Provider Name and Address Organization Details Last Updated DateTime 0 179.07 cm 33.9 kg/m2 173260. 17 g 79 /min 112 mm[Hg] 74 mm[Hg] Fawn Feliz [facility] Spyder Lynk [facility], [facility] 0 14:11:56 Date Recorded Body height Body mass index (BMI) Body weight Heart rate Systolic blood pressure Diastolic blood pressure Provider Name and Address Organization Details Last Updated DateTime 0 179.07 cm 33.9 kg/m2 285845. 17 g 82 /min 129 mm[Hg] 83 mm[Hg] hSeree Ritter [facility] 0 13:57:48 Social History Question Answer Notes LastModified by Organizat ion Details LastModified Time Tobacco Smoking Status Never Smoker Sheree Ritter andrés [employer] Spy[employer] Lynk [facility], [facility] 10/14/2019 08:58:57 What Is Your Level Of Alcohol Consumption? Occasional Information not available 10/14/2019 Auto Related Injury? No Information not available 10/14/2019 What Is Your Level Of Caffeine Consumption? Occasional Information not available 10/14/2019 How Much Tobacco Do You Chew? None Information not available 10/14/2019 Diabetes No Information no t available 10/14/2019 What Type Of Diet Are You Following? REGULAR Information not available 10/14/2019 High Blood Pressure No Information not available 10/14/2019 High Cholesterol Yes Informat ion not available 10/14/2019 Marital Status Informatio n not available 10/14/2019 What Types Of Sporting Activities Do You Participate In? Golf Information not available 10/14/2019 General Stress Level High Information not available 10/14/2019 Work Related Injury? No Information not available 10/14/2019 Sex: Unknown Functional Status Question Answer Note LastModified by Organization D etails LastModified Time What is your exercise level? Moderate Information not available 10/14/2019 Mental Status None recorded. Family History Relationship Description Onset Age of this Age Resolved Age Notes LastModified by Organization Details LastModified Time Father Heart disease [email or web address] Not available 2019 08:58:41 Medical History Condition Response Other Cancer N HIV or AIDS N Coronary Artery Disease N Gout N Kidney Stones N Hyperthyroidism N Breast Cancer N Head Trauma/Injury N Hernia Y Lung Cancer N Hypothyroidism N Lung Disease N Depression N COPD N Blood Clots N Pacemaker N Anxiety Disorder N Arthritis N Kidney Cancer N Cancer Y Stroke N Leg or Foot Ulcers N Neck Injury N High Cholesterol Y Liver Disease N Rheumatoid Arthritis N Fibromyalgia N Headaches N Kidney Disease N Heart Problems N Prostate Cancer N Migraines N Thyroid Problems N Anemia N Multiple Sclerosis N Ulcers N Heart Attack ([place]) Y Diabetes N Bleeding Disorder N Seizures/Epilepsy N Tuberculosis N Urinary Tract Infection N Back Problems N Diverticulitis N Asthma N Lupus N Peripheral Vascular Disease N Sleep Disorder N GERD/Reflux N Hepatitis N Aneurysm N Thyroid Cancer N Heart Disease Y Pulmonary Embolism N Hypertension N Osteoporosis N Past Encounters Encounter ID Performer Location Encounter Start Date Encounter Closed Date Diagnosis/Indication Diagnosis SNOMED-CT Code Diagnosis ICD10 Code Diagnosis Note [id number] ANDRZEJ NELSON [facility] [address] [place] [address] 10/14/2019 08:28:34 11/10/2019 16:16:02 Knee pain 83723953 M25.561 M25.562 Screening procedure 2012 5006 Z13.9 R53.83 M89.9 M94.9 Z12.5 Z01.812 E55.9 Osteoarthr itis of knee 187091625 M17.0 At today's office visit the patient's diagnosis and treatment options were discussed in great detail. The patient was provided with informatio n to make an informativ e decision on the next steps for treatment. The patient has tried several conservati ve measures including but not limited to PT, rest, ice, and NSAIDs with no beneficial relief. Given the imaging results and the duration of the patient's symptoms I would recommend BMAC with fat as they are an excellent candidate. We discussed the need for PRP at [facility] 12-week [facility]gers. The risk and benefits were discussed with the patient as well as functional and pain improvemen t outcomes. The procedure was discussed in detail as well as the recovery period. We discussed screening with R3 and its importance . We also discussed obtaining labs to ensure the patient is optimized for maximal results. I also discussed other conservati ve options. The patients case and treatment plan were reviewed in detail with Dr. Barnes. PLAN: [facility]/fat to bilateral knees. $2950 All questions were answered, the patient understood the treatment plan.Great er than 45 minutes face-to-fa ce visit with more than 50% of my time spent counseling the patient about their diagnosis including pathophysi ology and treatment options. [id number] Fawn Trini [facility] [address] [facility] [address] [place] [address] 11/12/2019 13:06:17 11/12/2019 14:13:24 [id number] Virgen Araiza [facility] [address] [place] [address] 03/09/2020 13:57:01 03/09/2020 14:29:16 Degeneration of lumbar intervertebral disc 37952958 M51.36 Lumbar spo ndylosis with myelopathy 61535076 M47.16 Neuralgia 34962060 M79.2 Lumbar radiculopathy 128 201320 M54.16 Health Concerns Section Related Observation LastModified by Organization Detai ls LastModified Time None Recorded Concern Status LastModified by Organization Details LastModified Time None Recorded Advance Directives Directive None Recorded Payers Encounter Date Sequence Insurance Name Policy Number Policy Ambrocio Covered Member ID Ambrocio Member ID Guarantor Name 10/14/2019 1 [place] [id number] Cristin Howe [id number] Cristin Howe 11/12/2019 1 [place] [id number] Cristin Howe [id number] Cristin Howe 03/09/2020 1 [place] [id number] Cristin Howe [id number] Cristin Howe Notes Date Note Type Note Provider Name and Address Organization Details Recorded Time 10/14/2019 text/html Pain Score Pain scale from 0-10, 10 being the worst 8 Chief Complaint Why are you here today? Look at knees When did the problem start 2 or more years Pain scale from 0-10, 10 being the worst 8 Over time is the problem getting better or worse? Worse Pain Description Aching Sharp Stabbing Time of day when pain is at its worst All Day Long What makes the pain better? Nothing Have you seen another doctor for this? Yes Name of the doctor Dr Philip Aldana Previous Methods Tried to Manage Pain Chiropractor Exercise Physical therapy Has patient ever had injections? Yes What Kind Of Injection(s) Cortisone Synvisc Date of last injection 03/29/1919 Imported from [employer] on 10/14/2019 ANDRZEJ NELSON [address], [place], [address], [facility], [place] 10/14/2019 10:16:19 11/12/2019 text/html Consult for bilateral knee pain, discuss possible treatment Fawn bowen [employer], [place] 11/12/2019 14:12:57 03/09/2020 text/html 55 y/o male presenting with RT SI pain with radiculopathy and weakness. He describes his pain as sharp and stabbing. The pt explains that his pain radiates from his RT SI down his RLE intermittently into his first metatarsal. He will have numbness to his RT first metatarsal, which he relives by wearing sandals or cutting holes in his socks. Pt also reports burning, and tingling greatest to the lateral aspect of the RLE. Pt s weakness is to the entire RLE. He reports recovery pain with biking. He is unable to lay on his RT hip without significant pain down his entire RLE. Pt has tried rest, ice, PT, chiropractic treatment, massage, exercise, anti-inflammatories, and pain medications without relief. Pt saw Dr. Perez prior to today s visit, who started him on 300mg tid Gabapentin. He believes this has provided some relief. Pt also has had EMG nerve conduction study performed by Dr. Leavitt. The findings of this study revealed the source of the pain is from the patient s back. Pt reports hx of laminectomy and discectomy 10 years ago, but he has no localized back pain today. Pt was treated with 02/26/20 PRP/fat to the bilateral knees. He reports moderate relief to both knees. Virgen bowen [employer], [place] 03/15/2020 11:51:31
--- OUTSIDE RECORDS SUMMARY | 2024-11-12 06:44 | XMS_ITS ---
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 He was unable to have colonoscopy at age 51 due to a cardiac condition requiring the use of Brilinta. His leaf size picker did not want him to be off of Brilinta for at least a year and he has been on it for 15 months now. I will schedule colonoscopy for screening with Dr. Espino. Heartburn 10/04/2017 Assessment & Plan (10/04/2017 3:46 PM POST DOCTORAL RESEARCHER): He is not having any heartburn on the pantoprazole. He has been on it for six months, so I will step him down to ranitidine 150 mg 1 tab po twice a day. If this does not control symptoms, I will order EGD for evaluation. I discussed GERD diet with him. Coronary artery disease invo lving cabazon coronary artery of cabazon heart without angina pectoris 04/16/2017 Assessment & Plan (11/08/2023 3:21 PM POST DOCTORAL RESEARCHER): Stable, without angina. I made no change in his excellent medical regimen today. I asked him to follow up with me annually, or sooner if needed. I again advised him to continue to diet and exercise regularly. Assessment & Plan (11/06/2022 11:11 AM POST DOCTORAL RESEARCHER): Stable, without angina. I made no change in his excellent medical regimen today, except to increase Norvasc to 10 mg daily for better blood pressure control. I asked him to follow up with me annually, or sooner if needed. I again advised him to continue to diet and exercise regularly. Assessment & Plan (07/25/2022 3:33 PM POST DOCTORAL RESEARCHER): Stable, without angina. I made no change in his excellent medical regimen today. I asked him to follow up with me annually, or sooner if needed. I again advised him to diet and exercise regularly. Assessment & Plan (07/19/2021 3:47 PM POST DOCTORAL RESEARCHER): Stable, without angina. I made no change in his excellent medical regimen today. I asked him to follow up with me annually, or sooner if needed. I again advised him to diet and exercise regularly. Assessment & Plan (07/13/2020 3:12 PM POST DOCTORAL RESEARCHER): Stable, without angina. I made no change [...] 04/16/2017 Assessment & Plan (11/08/2023 3:21 PM POST DOCTORAL RESEARCHER): Well controlled. Continue same therapy. Continue diet and exercise Assessment & Plan (11/06/2022 11:11 AM POST DOCTORAL RESEARCHER): Blood pressure is running high. As above, I increased Norvasc to 10 mg daily. Otherwise, continue same therapy. Continue diet and exercise. I asked him to continue to monitor his blood pressure carefully at home, and to report if it remains elevated. Assessment & Plan (07/25/2022 3:33 PM POST DOCTORAL RESEARCHER): Blood pressure is well controlled. Continue same therapy. Continue diet and exercise. Assessment & Plan (07/19/2021 3:48 PM POST DOCTORAL RESEARCHER): Blood pressure is well controlled. Continue same therapy. Continue diet and exercise. Assessment & Plan (07/13/2020 3:13 PM POST DOCTORAL RESEARCHER): Blood pressure is borderline today, but is [...] 04/16/2017 Assessment & Plan (11/08/2023 3:21 PM POST DOCTORAL RESEARCHER): Well controlled. Continue high-intensity statin therapy plus Zetia. Assessment & Plan (11/06/2022 11:12 AM POST DOCTORAL RESEARCHER): Lipids are well controlled. Continue high-intensity statin therapy plus Zetia. Assessment & Plan (07/25/2022 3:34 PM POST DOCTORAL RESEARCHER): Lipids are well controlled. Continue high-intensity statin therapy. Assessment & Plan (07/19/2021 3:48 PM POST DOCTORAL RESEARCHER): Lipids are well controlled. Continue high-intensity statin therapy plus Zetia. Assessment & Plan (07/13/2020 3:13 PM POST DOCTORAL RESEARCHER): Lipids are well controlled. Continue high-intensity statin [...] hernia 09/21/2015 Overview (12/14/2016): Incisional hernia Current Treatment and Therapy Plans No current plan information found. Past Treatment and Therapy Plans No past plan information found. Lifetime Dose Tracking * Chemical Lifetime Dose Automatic Entry Manual Entr y Air kerma at the reference point (Ka,r) 1,937.96 mGy 0 mGy 1,937.96 mGy Resolved Problems Problem Noted Date Diagnosed Date Resolved Date Recurrent angina status post coronary stent placement 05/21/2018 07/12/2020 Overview (05/21/2018): Added automatically from request for surgery [id number]
--- OUTSIDE RECORDS SUMMARY | 2024-11-12 06:44 | XMS_ITS | Continuity of Care Document ---
Author Organization [facility] Address [address] [place] [address] Phone Care Team Providers Care Learning Technologies Specialist Name Role Phone Rui LANDEROSCHRIS LOPEZ Francesco [...] on Encounter [facility], [address], [place], [place], [id number], [place] tel:[phone] [facility] right hip (chief complaint) Pain in right hipTrochanteric bursitis, right hip 2 Rui Maya. [address], [address], [place], [place], [address] , [place]. tel: [phone] Office/outpat ient visit,[facility] [place] [facility], [address], [place], [place], [id number], [phone] [facility] right hip (chief complaint) Pain in right hipTrochanteric bursitis, right hip 2 Pat carr. [address], [address], [place], [place], [address] , [place]. tel: [phone] Family History Family Member Type Diagnosis Age At Onset Father Problem (finding) Heart Disease Payers Payer name Insurance type Covered republican ID Rishi hailejimbo(s) Néstor [facility] [id number] Social History Type Description Quantity Date Captured [...] discharged in stable condition. Dictation completed with [employer] Practice Edition software, grammatical variances in spelling [...]
--- OUTSIDE RECORDS SUMMARY | 2024-11-12 06:44 | XMS_ITS | Encounter Summary ---
Author Organization [facility] Address [address] [address] Care Team Providers Care Drilling Engineer Name Role Phone Wesly Yang DO Primary Care Provider [phone] Wesly Yang DO Primary Care Provider [phone] Wesly Yang DO Primary Care Provider [phone] Wesly Yang DO Primary Care Provider [phone] Encounter Details Date Type Department Care Team (Latest Contact Info) Description 02/20/2013 Orders Only [facility] Cardiology ProviderMargareth MD [address] [place] [address] Social History Tobacco Use Types Packs/Day Years Used Date Smoking Tobacco: Never Assessed Sex and Gender Information Value Date Recorded Sex Assigned at Not on file Legal Sex Male 5:19 PM SOUS CHEF Gender Identity Not on file Sexual Orientation Not on file documented as of this encounter Plan of Treatment Not on file documented as of this encounter Procedures Procedure Name Priority Date/Time Associated Diagnosis Comments CARDIOLOGY REPORT 02/20/2013 documented in this encounter Results * CARDIOLOGY REPORT (02/20/2013) Anatomical Region Laterality Modality Other Narrative 02/20/2013 Ordered by an unspecified provider. Historical Provider CV CARDIAC JLI SUAZO Final Result documented in this encounter Visit Diagnoses Not on filedocumented in this encounter Additional Health Concerns Infection Onset Date Last Indicated Resolved Time COVID: Suspected 10/22/2022 10/22/2022 10/22/2022 8:38 AM SOUS CHEF documented as of this encounter Care Teams Drilling Engineer Relationship Specialty Start Date End Date Wesly Yang DO PCP - General 10/16/16 12/07/16 Wesly Yang DO PCP - General 11/02/15 10/15/16 Wesly Yang DO PCP - General 09/21/15 11/01/15 Wesly Yang DO [address] [place] [address] PCP - General Internal Medicine 12/08/16 documented as of this encounter
== END 2024-11-12 06:40 | disposition home or self-care (01) ==
PROVIDERS: Visit Provider Orthopaedic Surgery
DX: M25.561 Pain in right knee (principal); Z47.89 Encounter for other orthopedic aftercare
CPT/HCPCS: 73502; 73564